=== PATIENT | female | born 2000 | race Caucasian/White ===

== ENCOUNTER 2023-06-03 23:23 | Emergency (ER) | payer BC, SELFPAY ==
[2023-06-03 23:36] VITALS: BP 134/73; PULSE 105; RESP 18; TEMP 36.7; O2SAT 99; BMI 30.1
[2023-06-03 23:46] LABS: Appearance Urine Clear (Clear); Bilirubin Urine Negative (Negative); Blood Urine 2+ (Negative); Color Urine Yellow (Yellow); Glucose Urine Negative (Negative); Ketones Urine Negative (Negative); Leukocyte Esterase Urine Trace (Negative); Nitrite Urine Negative (Negative); Protein Urine Negative (Negative); Specific Gravity Urine 1.025 (1.000-1.030); Urobilinogen Urine 0.2 (0.2-1.0); pH Urine 5.5 (5.0-8.5)
[2023-06-03 23:52] LABS: RBC Urine 0-2 (0-2)
[2023-06-03 23:53] LABS: Bacteria Urine Few; Squamous Epithelial Cell Urine Few (None-Few)
[2023-06-04 00:30] LABS: Ur HCG Qualitative* Negative (Negative)
[2023-06-04 00:39] LABS: Basophils Percent Auto 0.1 % (0.0-3.0); Eosinophils Percent Auto 0.1 % (0.0-7.0); Hematocrit 38.7 % (33.0-51.0); Hemoglobin* 12.8 gm/dL (12.0-16.0); Immature Granulocytes Pct Auto 0.1 %; Lymphocytes Percent Auto 12.3 % (20-44); Mean Corpuscular HGB Conc 33 gm/dL (32-36); Mean Corpuscular Hemoglobin 30 pg (26-34); Mean Corpuscular Volume 91 fL (80-100); Monocytes Percent Auto 6.2 % (0.0-11.0); Neutrophils Percent Auto 81.2 % (42.0-72.0); Platelet Count* 335 K/uL (140-440); RDW Coefficient of Variation % 13.3 % (11.5-15.5); Red Blood Count 4.27 m/uL (4.00-5.20); White Blood Count* 15.41 K/uL (4.50-11.00)
[2023-06-04 00:41] LABS: Slide Review Reflex No
--- NOTE | 2023-06-04 01:04 | ED_ITS ---
HPI - General Adult General Chief complaint: Abdominal Pain Stated complaint: abdominal pain Time Seen by Provider: 06/04/23 00:03 Source: patient Mode of arrival: ambulatory Limitations: no limitations History of Present Illness HPI narrative: 23-year-old female presents the emergency department with menstrual cramps. She reports that her period this month has been heavier than usual. It has been lasting for the past 4 days. She is changing a pad or tampon about every 3-4 hours show no severe bleeding. There is no lightheadedness, dizziness presyncopal symptoms. She denies any chance of as she has had no contact. She is not on any type of control. She notes no dysuria, no blood in her urine. No heavy menstrual clots. Denies a history of STDs. No unusual odor. Pain is crampy in nature, comes in waves. She tried taking some Tylenol with some mild temporary improvement in her symptoms. Has not tried ibuprofen. There was no trauma or injury. I asked if she has seen a gyneco logist and she reports that she saw 1 in the past but her periods to have been getting heavier and cramp the year gradually over the last couple of years per her description. She does verbalize some concern for endometriosis as she thinks her mother may have had the condition. There is not appear to be any dangerously emergent reason for coming to the emergency room in the middle of the night for this. Past medical history is benign per her report. No major long-term health problems. Nonsmoker. No long-term medications. Allergic to penicillin. ROS is notable for the gynecological symptoms as above. Negative for other generalized, GI, urinary, skin, respiratory, neurological changes. Related Data Home Medications Medication Instructions Recorded Confirmed No Known Home Medications 05/28/23 05/28/23 Allergies Allergy/AdvReac Type Severity Reaction Status Date / Time amoxicillin Allergy Intermediate Rash Verified 05/28/23 17:38 Penicillins Allergy Intermediate Rash Verified 05/28/23 17:38 [facility] Social History Smoking Status: Never smoker Exam Const: Vital Signs, click to edit/add: Vital Signs - 24 hr 06/03/23 23:36 Temperature 98.1 F Pulse Rate [Right Pulse Oximeter] 105 H Respiratory Rate 18 Blood Pressure [Ri ght Upper Arm] 134/73 Pulse Oximetry 99 Oxygen Delivery Me thod Room Air Documenting provider has reviewed patient's vital signs: yes Common normals: no apparent distress General appearance: cooperative and well kempt HENMT: Mouth: oral and palatal mucosa normal Eye: Common normals: conjunctivae normal General eye: normal appearance of both eyes Conjunctiva: conjunctiva(e) normal Resp: Common normals: normal respiratory effort, no use of accessory muscles and clear to auscultation bilaterally Effort & inspection: able to speak in complete sentences Auscultation: clear to auscultation bilaterally Cardio: Common normals: regular rate, regular rhythm, S1 normal heart sound and no murmurs Rate: regular rate Rhythm: regular rhythm Heart sounds: S1 normal GI: Common normals: Normal to inspection, nondistended, normoactive bowel sounds present, soft to palpation, non-tender, no hepatosplenomegaly and no masses Palpation: soft and no hepatosplenomegaly : Common normals: no CVA tenderness, external appearance normal, appearance of the vagina normal, appearance of the cervix normal, bimanual exam normal and adnexae non-tender Bladder/kidney exam: no CVA tenderness Bimanual exam- vagina & uterus: normal bimanual exam Other: light menstrual bleeding. Cervix is closed, no unusual odor. No clots. No abnormal discharge. No cervical motion tenderness. Back & Pelvis: Common normals: no CVA tenderness Extremity: Common normals: normal to inspection and no pedal edema Psych: Appearance: well kempt Mood and affect: anxious Insight: fair Judgement: fair Skin: Common normals: no rashes or lesions noted General skin exam: no rashes or lesions noted Course Course Hospital Course: Menstrual cramps with no signs of emergent hemorrhage, sepsis, dangerous infection or other severe pathology. Her pulse did improve while in the ED. wet prep is collected. Recommended CBC to ensure that there is no anemia from her bleeding as well as a urinalysis. She will be given Toradol 10 mg p.o. x1 while we await the results. Reevaluation(s) Time of Reevaluation #1: 01:16 Reevaluation #1: All findings reviewed with patient. She verbalizes understanding and agreement. Alarm symptoms reviewed. She will make a follow-up appointment with gynecology. No further questions Vital Signs Vital signs: Initial Vital Signs Temperature 98.1 F 06/03/23 23:36 Temperature Source Temporal Artery Scan 06/03/23 23:36 Pulse Rate 105 H 06/03/23 23:36 Respiratory Rate 18 06/03/23 23:36 Blood Pressure 134/73 06/03/23 23:36 Blood Pressure Mean 93 06/03/23 23:36 Blood Pressure Position Sitting 06/03/23 23:36 Pulse Oximetry 99 06/03/23 23:36 Oxygen Delivery Method Room Air 06/03/23 23:36 Vital Signs Temperature 98.1 F 06/03/23 23:36 Pulse Rate 105 H 06/03/23 23:36 Respiratory Rate 18 06/03/23 23:36 Blood Pressure 134/73 06/03/23 23:36 Pulse Oximetry 99 06/03/23 23:36 Oxygen Delivery Method Room Air 06/03/23 23:36 Temperature 98.1 F 06/03/23 23:36 Pulse Rate 105 H 06/03/23 23:36 Respiratory Rate 18 06/03/23 23:36 Blood Pressure 134/73 06/03/23 23:36 Pulse Oximetry 99 06/03/23 23:36 Oxygen Delivery Method Room Air 06/03/23 23:36 Medical Decision Making MDM Narrative Medical decision making narrative: Differential diagnosis including pelvic infection, urinary infection, , complicated , menstrual cramps, dysmenorrhea, among others. Intra-abd ominal pathology including appendicitis, diverticulitis, colitis. Abdominal exam is overall very reassuring and I do not recommend further pursue did these diagnoses. Lab Data Lab results reviewed: Yes I reviewed the patient's lab results Lab results narrative: No anemia, blood in the urine can be explained by menses. No evidence of vaginal infection. Negative HCG. All reassuring. Labs: Lab Results 06/03/23 06/04/23 06/04/23 Range/Units 23:35 00:00 00:30 WBC (4.50-11.00) K/uL RBC (4.00-5.20) m/uL Hgb (12.0-16.0) gm/dL Hct (33.0-51.0) % MCV (80-100) fL MCH (26-34) pg MCHC (32-36) gm/dL RDW Coeff of Carlos (11.5-15.5) % Plt Count (140-440) K/uL Neut % (Auto) (42.0-72.0) % Lymph % (Auto) (20-44) % [place] % (Auto) (0.0-11.0) % Eos % (Auto) (0.0-7.0) % Baso % (Auto) (0.0-3.0) % Neut # (Auto) (1.7-7.0) K/uL Lymph # (Auto) (0.90-2.90) K/uL [place] # (Auto) (0.00-0.90) K/UL Eos # (Auto) (0.00-0.50) K/uL Baso # (Auto) (0.00-0.30) K/uL Abs Immat Gran (auto) (0.00-0.30) K/uL Imm/Tot Granulo (auto) % Urine Color Yellow (Yellow) Urine Appearance Clear (Clear) Urine pH 5.5 (5.0-8.5) Ur Specific [place] 1.025 (1.000-1.030) Urine Protein Negative (Negative) Urine Glucose (UA) Negative (Negative) Urine Ketones Negative (Negative) Urine Blood 2+ A (Negative) Urine Nitrite Negative (Negative) Urine Bilirubin Negative (Negative) Urine Urobilinogen 0.2 (0.2-1.0) Ur Leukocyte Esterase Trace A (Negative) Urine RBC 0-2 (0-2) Urine WBC 2-5 (0-5) Ur Squamous Epith Cells Few (None-Few) Urine Bacteria Few A (None) Urine HCG, Qual Negative (Negative) Vaginal Trichomonas No Trichomonas Seen (None Seen) Vaginal Yeast No Yeast Seen (None Seen) Vaginal Clue Cells <20% Clue Cells Seen (None Seen) 06/04/23 Range/Units 00:35 WBC 15.41 H (4.50-11.00) K/uL RBC 4.27 (4.00-5.20) m/uL Hgb 12.8 (12.0-16.0) gm/dL Hct 38.7 (33.0-51.0) % MCV 91 (80-100) fL MCH 30 (26-34) pg MCHC 33 (32-36) gm/dL RDW Coeff of [place] 13.3 (11.5-15.5) % Plt Count 335 (140-440) K/uL Neut % (Auto) 81.2 H (42.0-72.0) % Lymph % (Auto) 12.3 L (20-44) % [place] % (Auto) 6.2 (0.0-11.0) % Eos % (Auto) 0.1 (0.0-7.0) % Baso % (Auto) 0.1 (0.0-3.0) % Neut # (Auto) 12.50 H (1.7-7.0) K/uL Lymph # (Auto) 1.90 (0.90-2.90) K/uL [place] # (Auto) 1.00 H (0.00-0.90) K/UL Eos # (Auto) 0.00 (0.00-0.50) K/uL Baso # (Auto) 0.00 (0.00-0.30) K/uL Abs Immat Gran (auto) 0.00 (0.00-0.30) K/uL Imm/Tot Granulo (auto) 0.1 % Urine Color (Yellow) Urine Appearance (Clear) Urine pH (5.0-8.5) Ur Specific [place] (1.000-1.030) Urine Protein (Negative) Urine Glucose (UA) (Negative) Urine Ketones (Negative) Urine Blood (Negative) Urine Nitrite (Negative) Urine Bilirubin (Negative) Urine Urobilinogen (0.2-1.0) Ur Leukocyte Esterase (Negative) Urine RBC (0-2) Urine WBC (0-5) Ur Squamous Epith Cells (None-Few) Urine Bacteria (None) Urine HCG, Qual (Negative) Vaginal Trichomonas (None Seen) Vaginal Yeast (None Seen) Vaginal Clue Cells (None Seen) Discharge Plan Discharge Clinical Impression: Crampy pain associated with menses Patient Disposition: Home, Self-Care Condition: Stable Instructions: Dysmenorrhea (ED) Additional Instructions: As we discussed, there is no sign of anemia, abnormal bleeding, infection or other reason for your abdominal pain today. I do think this is related to menstrual cramps. Unfortunately, it is not uncommon for your periods to become more crampy and heavy with age. I would strongly recommend that you make a follow-up appointment with our gynecology team to discuss long-term management options for you. In the meantime, treat the pain with Tylenol 1000 mg every 6 hours as needed, heating pads and bloo-rdq-bdboffr muscle rubs solutions. I have given you a prescription for Toradol, a common anti-inflammatory medication that works very well for this. Take 1 pill every 6 hours as needed. Once you run out of this, you may use ssze-koh-ytqleox Aleve instead. As we discussed, watch for very heavy bleeding such as soaking through a pad or tampon every hour, being so dizzy that you can get from her bed to the bathroom without feeling terribly weak or persistent vomiting. You may return to work with no restrictions in your duties. Activity Level: No Restrictions Discharge Diet: Regular Prescriptions: No Action No Known Home Medications Follow Up/Referrals: Provider,Not a Local [Primary Care Provider] - Stand Alone Forms: [employer] Info Instructions
[2023-06-04 01:07] LABS: Clue Cells <20% Clue Cells Seen (None Seen); Trichomonas No Trichomonas Seen (None Seen); Yeast No Yeast Seen (None Seen)
[2023-06-04 01:24] VITALS: BP 125/74; PULSE 89; RESP 18; TEMP 36.9; O2SAT 99
[2023-06-04 01:25] VITALS: BP 125/74; PULSE 89; RESP 18; TEMP 36.9
== END 2023-06-04 01:25 | disposition home or self-care (01) ==
PROVIDERS: Emergency Provider Family Medicine
DX: N94.6 Dysmenorrhea, unspecified (principal)
CPT/HCPCS: 36415; 81001; 81003; 81025; 85025; 87086; 87210; 99283; 99284

== ENCOUNTER 2023-06-10 01:51 | Emergency (ER) | payer BC, SELFPAY ==
[2023-06-10 01:58] VITALS: BP 140/90; PULSE 106; RESP 16; TEMP 37.2; O2SAT 98
--- NOTE | 2023-06-10 02:30 | ED.GENADULT ---
HPI - General Adult General Chief complaint: Abdominal Pain Stated complaint: stomach pains Time Seen by Provider: 06/10/23 01:57 History of Present Illness HPI narrative: pt complaining of abd pain, lower left and right. pain rated 7/10. has had this pain for about a week. was seen in ER last week. 23-year-old young woman presenting to the emergency department, returning after being evaluated with dysmenorrhea. It has been maybe 4 days though since completed menses. She was doubled over in pain at work. Noted to be generally bloated. Seems to have concerns of potential STI gone untreated. Mentions chlamydia. No dysuria. No unusual vaginal discharge. There was an odor though. Trichomonas BV and yeast was assessed the last visit and and negative. She reports an ultrasound was done but on review of records I cannot assess that. There is some question of whether not may have endometriosis. Has been taking ibuprofen acetaminophen with temporary relief. Also tried ketorolac prescribed at last visit. This helps briefly with her pain. Is nearly out. Just wondering why she is continuing to have pain as well. Related Data Home Medications Medication Instructions Recorded Confirmed No Known Home Medications 05/28/23 05/28/23 Allergies Allergy/AdvReac Type Severity Reaction Status Date / Time amoxicillin Allergy Intermediate Rash Verified 05/28/23 17:38 Penicillins Allergy Intermediate Rash Verified 05/28/23 17:38 Review of Systems Status of ROS: Reports: 6 or more systems reviewed and unremarkable except as noted in History and below [facility] Medical History (Updated 06/11/23 @ 17:21 by Cristian Saleh MD) No significant past medical history Surgical History (Updated 06/04/23 @ 01:23 by Bridger Corrales RN) No significant past surgical history Social History Smoking Status: Never smoker Second hand tobacco smoke exposure: No How often do you have a drink containing alcohol: never How often do you have six or more drinks on one occasion: Never AUDIT-C Alcohol total score: 0 Non-prescribed substance use: denies use Exam Narrative: Exam Narrative: Pleasant. Quiet. In no distress. Seems tired. Limited answers to questions. Defers to mom often in answering questions. Mild discomfort to palpation of the low abdomen. No peritoneal signs. No masses. For No flank pain. Lungs appear to be clear. exam not done today. Extremities are well perfused without edema. Const: Vital Signs, click to edit/add: Vital Signs - 24 hr 06/10/23 01:58 06/10/23 06:22 Temperature 98.9 F 97.6 F Pulse Rate [Left P ulse Oximeter] 106 H 90 Respiratory Rate 16 16 Blood Pressure [Ri ght Upper Arm] 140/90 H 136/62 Pulse Oximetry 98 98 Oxygen Delivery Me thod Room Air Room Air Documenting provider has reviewed patient's vital signs: yes Course Vital Signs Vital signs: Initial Vital Signs Temperature 98.9 F 06/10/23 01:58 Temperature Source Temporal Artery Scan 06/10/23 01:58 Pulse Rate 106 H 06/10/23 01:58 Pulse Rhythm Regular 06/10/23 01:58 Respiratory Rate 16 06/10/23 01:58 Blood Pressure 140/90 H 06/10/23 01:58 Blood Pressure Mean 106 H 06/10/23 01:58 Blood Pressure Position Sitting 06/10/23 01:58 Pulse Oximetry 98 06/10/23 01:58 Oxygen Delivery Method Room Air 06/10/23 01:58 Vital Signs Temperature 98.9 F 06/10/23 01:58 Pulse Rate 106 H 06/10/23 01:58 Respiratory Rate 16 06/10/23 01:58 Blood Pressure 140/90 H 06/10/23 01:58 Pulse Oximetry 98 06/10/23 01:58 Oxygen Delivery Method Room Air 06/10/23 01:58 Temperature 97.6 F 06/10/23 06:22 Pulse Rate 90 06/10/23 06:22 Respiratory Rate 16 06/10/23 06:22 Blood Pressure 136/62 06/10/23 06:22 Pulse Oximetry 98 06/10/23 06:22 Oxygen Delivery Method Room Air 06/10/23 06:22 Medical Decision Making MDM Narrative Medical decision making narrative: Moved on with CT of abdomen as Sherry maintained that an pelvic ultrasound was done at last visit though with further review I can not find any reference a record of it. Given degree of pain though and with elevated white count prior visit I think this would be reasonable to do. She notes a quite sometime ago there was suspected chlamydial exposure but she never got tested for it so this has been of concern as well. Possibly prolonged inflammation following menses though rather atypical. Endometriosis could be playing a role. Does not seem to be a kind of pain I would expect with torsion or even intermittent torsion. Of this chronicity though would see this in CT by this point. Diverticulitis is in differential along with constipation. Will evaluate urine again. Urine testing was negative. Ketorolac and IV fluid given. I do review CT images. Radiology over-read confirms CT scan does not show any reason for her pain without acute abnormalities. Diverticulosis is noted along with fatty liver and absent gallbladder. After departure urinalysis of gonorrhea and chlamydia testing returns with positive test for gonorrhea; negative for chlamydia. I have called and left message for Sherry to return for 1g IM Rocephin. Would also consider a test of cure in a week with primary provider. I think this certainly could be reason for her pain. Lab Data Lab results reviewed: Yes I reviewed the patient's lab results Labs: Lab Results 06/10/23 06/10/23 Range/Units 03:20 03:25 WBC 12.26 H (4.50-11.00) K/uL RBC 3.97 L (4.00-5.20) m/uL Hgb 11.6 L (12.0-16.0) gm/dL Hct 36.1 (33.0-51.0) % MCV 91 (80-100) fL MCH 29 (26-34) pg MCHC 32 (32-36) gm/dL RDW Coeff of [place] 13.4 (11.5-15.5) % Plt Count 361 (140-440) K/uL Neut % (Auto) 81.4 H (42.0-72.0) % Lymph % (Auto) 11.7 L (20-44) % [place] % (Auto) 6.3 (0.0-11.0) % Eos % (Auto) 0.2 (0.0-7.0) % Baso % (Auto) 0.1 (0.0-3.0) % Neut # (Auto) 10.00 H (1.7-7.0) K/uL Lymph # (Auto) 1.40 (0.90-2.90) K/uL [place] # (Auto) 0.80 (0.00-0.90) K/UL Eos # (Auto) 0.00 (0.00-0.50) K/uL Baso # (Auto) 0.00 (0.00-0.30) K/uL Abs Immat Gran (auto) 0.00 (0.00-0.30) K/uL Imm/Tot Granulo (auto) 0.3 % Sodium 141 (135-149) mmol/L Potassium 3.8 (3.6-5.1) mmol/L Chloride 106 (96-114) mmol/L Carbon Dioxide 24 (20-32) mmol/L Anion Gap 11 (7-15) mEq/L BUN 14 (5-24) mg/dL Creatinine 0.7 (0.5-1.5) mg/dL Estimated GFR 124 ml/min Glucose 95 (60-115) mg/dL Calcium 9.2 (8.4-10.6) mg/dL Total Bilirubin 0.5 (0.1-1.5) mg/dL Direct Bilirubin 0.1 (0.0-0.5) mg/dL AST 42 H (12-35) U/L ALT 46 H (4-35) U/L Alkaline Phosphatase 107 (40-150) U/L C-Reactive Protein 15.0 H (0.5-1.0) mg/dL Total Protein 8.0 (6.0-8.3) g/dL Albumin 4.4 (3.3-5.0) g/dL Urine Color Yellow (Yellow) Urine Appearance Slightly Cloudy A (Clear) Urine pH 6.0 (5.0-8.5) Ur Specific [place] 1.025 (1.000-1.030) Urine Protein Negative (Negative) Urine Glucose (UA) Negative (Negative) Urine Ketones Negative (Negative) Urine Blood Trace-intact A (Negative) Urine Nitrite Negative (Negative) Urine Bilirubin Negative (Negative) Urine Urobilinogen 0.2 (0.2-1.0) Ur Leukocyte Esterase 1+ A (Negative) Urine RBC 0-2 (0-2) Urine WBC 0-2 (0-5) Ur Squamous Epith Cells Few (None-Few) Urine Bacteria Few A (None) C.trachomatis Ampl DNA NOT DETECTED (No Detected) N.gonorrhoeae Ampl DNA DETECTED A (No Detected) Discharge Plan Discharge Clinical Impression: Pelvic pain, Dysmenorrhea, Gonorrhea Patient Disposition: Home w/ Parent or Adult Condition: Improved Additional Instructions: I will call you if testing for gonorrhea or chlamydia is positive. Otherwise yes I think it would be a good idea to reestablish primary care provider and/or see OBGYN if this pain is continuing. You mentioned the bloating, might try some Midol or Pamprin in addition to prescription medications. Stay well-hydrated. Alternative to the ketorolac or ibuprofen, might be naproxen up to 500 mg 2 times daily. Do not take ketorolac or ibuprofen or naproxen at the same time dosing. Return otherwise for uncontrolled pain, repeated vomiting, associated fever. Ketorolac from [facility]. Prescriptions: No Action No Known Home Medications Follow Up/Referrals: Provider,Not a Local [Primary Care Provider] - Stand Alone Forms: [employer] Info Instructions
--- NOTE | 2023-06-10 02:54 | CRLHL7_ITS ---
For Patients: As a result of the Century Cures Act, medical imaging exams and procedure reports are released immediately into your electronic medical record. You may view this report before your referring provider. If you have questions, please contact your health care provider. INDICATION: Pain for 1 week COMPARISON: None TECHNIQUE: CT examination of the abdomen and pelvis was performed following the uneventful intravenous administration of 83 cc of Isovue 3 7. Thin section axial images were obtained from the lung bases through the pubic symphysis. Oral contrast was not administered. Please note that all CT scans at this facility use dose modulation, iterative reconstruction, and/or weight-based dosing when appropriate to reduce radiation dose to as low as reasonably achievable. FINDINGS: LUNG BASES: The lung bases as visualized appear normal.The heart size is normal at the lung bases. LIVER/BILIARY SYSTEM:The liver is normal in size and configuration. There is no focal mass and there is no intra- or extra hepatic biliary ductal dilatation.Hepatic steatosis. Surgically absent gallbladder ADRENALS: Normal KIDNEYS, URETERS and BLADDER:The kidneys appear normal. No visible mass, calculus or hydronephrosis. The ureters and bladder as visualized appear normal. SPLEEN:Normal appearance. PANCREAS: Appears normal. RETROPERITONEUM and MESENTERY: There is no mass, adenopathy or aortic aneurysm. GASTROINTESTINAL SYSTEM: There is no evidence of diverticulitis, colitis, mechanical obstruction, or appendicitis. The small bowel as visualized appears normal.Diverticulosis PELVIS: No mass, adenopathy or free fluid. OSSEOUS STRUCTURES and ABDOMINAL WALL: There is an age-appropriate appearance of the osseous structures.No significant abdominal wall defect. OTHER: No free fluid or free air. IMPRESSION: Fatty infiltrated liver. Status post cholecystectomy. Diverticulosis. No acute appearing finding or directly visible explanation for abdominal pain. Please note that all CT scans at this facility use dose modulation, iterative reconstruction, and/or weight-based dosing when appropriate to reduce radiation dose to as low as reasonably achievable. Dictated by Keyon Patrick MD @ 06/10/2023 4:27:58 AM (Electronically Signed)
[2023-06-10 03:31] LABS: Basophils Percent Auto 0.1 % (0.0-3.0); Eosinophils Percent Auto 0.2 % (0.0-7.0); Hematocrit 36.1 % (33.0-51.0); Hemoglobin* 11.6 gm/dL (12.0-16.0); Immature Granulocytes Pct Auto 0.3 %; Lymphocytes Percent Auto 11.7 % (20-44); Mean Corpuscular HGB Conc 32 gm/dL (32-36); Mean Corpuscular Hemoglobin 29 pg (26-34); Mean Corpuscular Volume 91 fL (80-100); Monocytes Percent Auto 6.3 % (0.0-11.0); Neutrophils Percent Auto 81.4 % (42.0-72.0); Platelet Count* 361 K/uL (140-440); RDW Coefficient of Variation % 13.4 % (11.5-15.5); Red Blood Count 3.97 m/uL (4.00-5.20); White Blood Count* 12.26 K/uL (4.50-11.00)
[2023-06-10 03:33] LABS: Slide Review Reflex No
[2023-06-10 03:35] LABS: Appearance Urine Slightly Cloudy (Clear); Bilirubin Urine Negative (Negative); Blood Urine Trace-intact (Negative); Color Urine Yellow (Yellow); Glucose Urine Negative (Negative); Ketones Urine Negative (Negative); Leukocyte Esterase Urine 1+ (Negative); Nitrite Urine Negative (Negative); Protein Urine Negative (Negative); Specific Gravity Urine 1.025 (1.000-1.030); Urobilinogen Urine 0.2 (0.2-1.0)
[2023-06-10] MEDS: 0.9 % SODIUM CHLORIDE 1000 ml 1,000 ML IV (03:37)
[2023-06-10 03:41] LABS: Bacteria Urine Few; RBC Urine 0-2 (0-2); Squamous Epithelial Cell Urine Few (None-Few); WBC Urine 0-2 (0-5)
[2023-06-10 03:49] LABS: Chloride* 106 mmol/L (96-114); Potassium* 3.8 mmol/L (3.6-5.1); Sodium* 141 mmol/L (135-149)
[2023-06-10 03:50] LABS: Albumin* 4.4 g/dL (3.3-5.0)
[2023-06-10 03:52] LABS: Creatinine* 0.7 mg/dL (0.5-1.5); Estimated Glomerular Filt Rate 124 ml/min
[2023-06-10 03:53] LABS: Anion Gap 11 mEq/L (7-15); Bilirubin Direct* 0.1 mg/dL (0.0-0.5); Bilirubin Total* 0.5 mg/dL (0.1-1.5); Blood Urea Nitrogen* 14 mg/dL (5-24); Calcium* 9.2 mg/dL (8.4-10.6); Carbon Dioxide* 24 mmol/L (20-32); Glucose* 95 mg/dL (60-115)
[2023-06-10 03:54] LABS: Alanine Aminotransferase* 46 U/L (4-35); Alkaline Phosphatase* 107 U/L (40-150); Aspartate Amino Transferase* 42 U/L (12-35)
[2023-06-10] MEDS: KETOROLAC 30 MG/ML inj IVP (04:37)
[2023-06-10 06:22] VITALS: BP 136/62; PULSE 90; RESP 16; TEMP 36.4; O2SAT 98
[2023-06-10 07:25] LABS: Chlamydia DNA Amplified* NOT DETECTED (No Detected)
[2023-06-10 07:28] LABS: GC DNA Amplified* DETECTED (No Detected)
[2023-06-10] MEDS: cefTRIAXone 1 GM VIAL IM (14:15)
[2023-06-10] MEDS: LIDOCAINE 1% 5 ml (pf) 5 ML VIAL 2.1 ML IM (14:16)
== END 2023-06-10 06:23 | disposition home or self-care (01) ==
PROVIDERS: Emergency Provider Family Medicine
DX: N94.6 Dysmenorrhea, unspecified (principal); A54.9 Gonococcal infection, unspecified; R10.2 Pelvic and perineal pain
CPT/HCPCS: 36415; 74177; 80048; 80076; 81001; 85025; 86140; 87086; 87491; 87591; 96361; 96372; 96374; 99284; 99285; J0696; J1885; J7030; Q9967

== ENCOUNTER 2023-10-14 10:21 | Emergency (ER) | payer BC, SELFPAY ==
[2023-10-14] VITALS (21 sets, daily range): BP systolic 113–146; BP diastolic 66–91; PULSE 97–115; RESP 20; TEMP 36.8–37; O2SAT 95–99; BMI 30.1
--- NOTE | 2023-10-14 10:52 | ED.SOB ---
HPI - SOB/Dyspnea General Time Seen by Provider: 10:52 Date Seen: 10/14/23 Chief Complaint: Shortness of Breath/Dyspnea Stated Complaint: Trouble breathing, throat pain Time Seen by Provider: 10/14/23 10:52 Source: patient and RN notes reviewed Mode of arrival: ambulatory Limitations: no limitations History of Present Illness HPI Narrative: Sherry is a very pleasant 23-year-old female previously healthy who comes to the emergency room for evaluation of a sore throat and difficulty breathing. Patient notes the onset of a sore throat yesterday. Today it has become much worse in her tonsils are quite swollen and she states that it is hard to breathe. She has also had some nasal congestion and pressure in her forehead. She denies a cough however. She states that she is due to get her tonsils removed at the end of October because she gets sick frequently. She notes that she has never had this much swelling however. She has not had had any known exposures to illnesses that she knows of. She has not had any vomiting or diarrhea although she has some mild nausea at this point. No fevers at this point. She has not taken anything for discomfort. Related Data Previous Rx's Medication Instructions Recorded clindamycin HCl 300 mg capsule 300 mg PO TID #30 caps 10/14/23 Allergies Allergy/AdvReac Type Severity Reaction Status Date / Time amoxicillin Allergy Intermediate Rash Verified 05/28/23 17:38 Penicillins Allergy Intermediate Rash Verified 05/28/23 17:38 Review of Systems Status of ROS: Reports: 10 or more systems reviewed and unremarkable except as noted in History and below Const: Reports: fatigue; Denies: fever or chills Eyes: Denies: change in vision ENMT: Reports: throat pain, throat swelling, difficulty swallowing and nasal congestion; Denies: swelling of lips/tongue or ear pain Cardio: Reports: shortness of breath with exertion; Denies: chest pain Resp: Reports: shortness of breath; Denies: cough GI: Reports: nausea and difficulty swallowing; Denies: abdominal pain or vomiting : Reports: other (Adamantly denies any possibility of ) Endo: Reports: fatigue Allergy/Immuno: Reports: throat swelling PFSH PFSH Medical History No significant past medical history Surgical History No significant past surgical history Social History Smoking Status: Current every day smoker Do you use any of these nicotine containing products: Vaping Products Second hand tobacco smoke exposure: No How often do you have a drink containing alcohol: 2-3 times a week How many standard drinks containing alcohol do you have on a typical day: 1 or 2 How often do you have six or more drinks on one occasion: Never AUDIT-C Alcohol total score: 3 Non-prescribed substance use: denies use Exam Narrative: Exam Narrative: Patient is alert and oriented. She is not tripoding or pursing her lips but does appear to be in significant discomfort. Her eyes are clear, TMs normal. Nose without drainage. Oral cavity shows no trismus. She does have significantly enlarged tonsils at 3+. Her left tonsil appears to be larger than the right. No exudate is noted. Positive for anterior cervical lymphadenopathy. She is protecting her airway and I do not see any respiratory compromise at this time Heart with a tachycardic rate normal rhythm. Lungs are clear bilaterally. Abdomen is soft nontender. Moving all extremities. Const: Vital Signs, click to edit/add: Vital Signs - 24 hr 10/14/23 10:27 10/14/23 10:39 10/14/23 10:45 Temperature 98.3 F Pulse Rate 110 H 110 H Pulse Rate [Pulse Oximeter] 115 H Respiratory Rate 20 Blood Pressure Blood Pressure [Ri ght Upper Arm] 129/74 Pulse Oximetry 96 97 97 Oxygen Delivery Me thod Room Air 10/14/23 10:47 10/14/23 10:51 10/14/23 11:00 Temperature Pulse Rate 113 H 115 H Pulse Rate [Pulse Oximeter] 110 H Respiratory Rate Blood Pressure 143/86 H Blood Pressure [Ri ght Upper Arm] Pulse Oximetry 97 97 99 Oxygen Delivery Me thod Room Air 10/14/23 11:02 10/14/23 11:15 10/14/23 11:30 Temperature Pulse Rate 108 H 106 H 106 H Pulse Rate [Pulse Oximeter] Respiratory Rate Blood Pressure 146/85 H Blood Pressure [Ri ght Upper Arm] Pulse Oximetry 99 98 98 Oxygen Delivery Me thod 10/14/23 11:45 10/14/23 12:00 12/31/23 12:02 Temperature Pulse Rate 108 H 104 H 97 Pulse Rate [Pulse Oximeter] Respiratory Rate Blood Pressure 113/66 Blood Pressure [Ri ght Upper Arm] Pulse Oximetry 96 99 98 Oxygen Delivery Me thod 10/14/23 12:15 10/14/23 12:30 10/14/23 12:45 Temperature Pulse Rate 102 H 107 H 101 H Pulse Rate [Pulse Oximeter] Respiratory Rate Blood Pressure Blood Pressure [Ri ght Upper Arm] Pulse Oximetry 97 98 97 Oxygen Delivery Me thod 10/14/23 12:47 10/14/23 13:00 10/14/23 13:01 Temperature 98.6 F Pulse Rate 105 H 104 H Pulse Rate [Pulse Oximeter] Respiratory Rate Blood Pressure 123/91 H Blood Pressure [Ri ght Upper Arm] Pulse Oximetry 95 96 Oxygen Delivery Me thod 10/14/23 13:02 10/14/23 13:15 10/14/23 13:30 Temperature Pulse Rate 108 H 104 H 100 Pulse Rate [Pulse Oximeter] Respiratory Rate Blood Pressure Blood Pressure [Ri ght Upper Arm] Pulse Oximetry 95 95 95 Oxygen Delivery Me thod Documenting provider has reviewed patient's vital signs: yes Course Course ED Course: Differential diagnosis includes but is not limited to strep pharyngitis, COVID, influenza, RSV, mono, other viral infection, peritonsillar abscess. At this time we do count today as 2nd day of symptoms and thus a little bit early for an abscess to have had time to form. Nevertheless while awaiting other labs we will go ahead and place an IV, give Zofran 4 mg, Toradol 15 mg, clindamycin 600 mg. Normally would use Unasyn or Zosyn but patient is penicillin allergic. Initial plan was to give steroid but we are holding off until I speak with ENT. Vital Signs Vital signs: Initial Vital Signs Temperature 98.3 F 10/14/23 10:27 Temperature Source Temporal Artery Scan 10/14/23 10:27 Pulse Rate 115 H 10/14/23 10:27 Respiratory Rate 20 10/14/23 10:27 Blood Pressure 129/74 10/14/23 10:27 Blood Pressure Mean 92 10/14/23 10:27 Pulse Oximetry 96 10/14/23 10:27 Oxygen Delivery Method Room Air 10/14/23 10:27 Vital Signs Temperature 98.3 F 10/14/23 10:27 Pulse Rate 115 H 10/14/23 10:27 Respiratory Rate 20 10/14/23 10:27 Blood Pressure 129/74 10/14/23 10:27 Pulse Oximetry 96 10/14/23 10:27 Oxygen Delivery Method Room Air 10/14/23 10:27 Temperature 98.6 F 10/14/23 12:47 Pulse Rate 100 10/14/23 13:30 Respiratory Rate 20 10/14/23 10:27 Blood Pressure 123/91 H 10/14/23 13:01 Pulse Oximetry 95 10/14/23 13:30 Oxygen Delivery Method Room Air 10/14/23 10:51 Medications Administered Medications: Discontinued Medications Generic Name Dose Route Start Last Admin Trade Name Freq PRN Reason Stop Dose Admin Sodium Chloride 1,000 mls @ 1,000 mls/hr 10/14/23 10:59 10/14/23 12:18 0.9 % Sodium Chloride 1000 Ml IV 10/14/23 11:58 Infused .Q1H TANNER Infusion Clindamycin Phosphate 600 mg in 50 mls @ 100 mls/hr 10/14/23 11:01 10/14/23 11:53 Clindamycin 600 Mg/50 Ml-D5w IVPB 10/14/23 11:30 Infused ONCE ONE Infusion Ketorolac Tromethamine 15 mg 10/14/23 12:27 10/14/23 12:45 Ketorolac 15 Mg/Ml Inj IVP 10/14/23 12:28 15 mg ONCE ONE Administration Morphine Sulfate 2 mg 10/14/23 10:59 10/14/23 11:17 Morphine 2 Mg/Ml Inj IVP 10/14/23 11:00 2 mg ONCE ONE Administration Morphine Sulfate 4 mg 10/14/23 12:27 10/14/23 12:45 Morphine 4 Mg/Ml Inj IVP 10/14/23 12:28 4 mg ONCE ONE Administration Ondansetron HCl 4 mg 10/14/23 10:58 10/14/23 11:17 Ondansetron 2 Mg/Ml Inj IVP 10/14/23 10:59 4 mg ONCE ONE Administration MDM - SOB/Dyspnea MDM Narrative Medical decision making narrative: 1. Strep pharyngitis-positive strep, white count elevated at 13.93 and CRP at 2.0. patient received morphine, Toradol, Zofran for pain control. She also received her 1st dose of antibiotics clindamycin 600 mg IV.. I do speak with Dr. Quiroga who is covering our ENT cover just weekend. Agrees with holding off on CT at this time given length of symptoms. Will have patient return for any worsening symptoms. She is already noted to be doing a lot better. She also received 1 L of normal saline. Will continue clindamycin 300 mg p.o. t.i.d. times 10 days. 2. Disposition -home at this time. May alternate ibuprofen and Tylenol as needed for discomfort. Tylenol will be the next medication needed as she received Toradol in the ED. Return to the ER for worsening symptoms that are discussed with patient. This would include difficulty breathing, vomiting, high fever, inability to eat. Medical Records Attestation: I reviewed the patient's medical records. Lab Data Attestation: I reviewed the patient's lab results. Labs: Lab Results 10/14/23 10/14/23 Range/Units 10:35 11:00 WBC 13.93 H (4.50-11.00) K/uL RBC 4.48 (4.00-5.20) m/uL Hgb 13.3 (12.0-16.0) gm/dL Hct 40.2 (33.0-51.0) % MCV 90 (80-100) fL MCH 30 (26-34) pg MCHC 33 (32-36) gm/dL RDW Coeff of Carlos 13.5 (11.5-15.5) % Plt Count 331 (140-440) K/uL Neut % (Auto) 84.0 H (42.0-72.0) % Lymph % (Auto) 8.9 L (20-44) % Benzie % (Auto) 6.0 (0.0-11.0) % Eos % (Auto) 0.7 (0.0-7.0) % Baso % (Auto) 0.2 (0.0-3.0) % Neut # (Auto) 11.70 H (1.7-7.0) K/uL Lymph # (Auto) 1.20 (0.90-2.90) K/uL Benzie # (Auto) 0.80 (0.00-0.90) K/UL Eos # (Auto) 0.10 (0.00-0.50) K/uL Baso # (Auto) 0.00 (0.00-0.30) K/uL Abs Immat Gran (auto) 0.00 (0.00-0.30) K/uL Imm/Tot Granulo (auto) 0.2 % Sodium 138 (135-149) mmol/L Potassium 3.9 (3.6-5.1) mmol/L Chloride 105 (96-114) mmol/L Carbon Dioxide 23 (20-32) mmol/L Anion Gap 10 (7-15) mEq/L BUN 15 (5-24) mg/dL Creatinine 0.5 (0.5-1.5) mg/dL Estimated Creat Clear 143.52 Estimated GFR 134 ml/min Glucose 98 (60-115) mg/dL Calcium 9.1 (8.4-10.6) mg/dL Total Bilirubin 0.6 (0.1-1.5) mg/dL AST 37 H (12-35) U/L ALT 41 H (4-35) U/L Alkaline Phosphatase 103 (40-150) U/L C-Reactive Protein 2.0 H (0.5-1.0) mg/dL Total Protein 8.1 (6.0-8.3) g/dL Albumin 4.7 (3.3-5.0) g/dL SARS-CoV-2 (PCR) Negative SARS-CoV-2 (Negative) Monoscreen Negative (Negative) Influenza Type A (PCR) Negative PCR FLU A (Negative) Influenza Type B (PCR) Negative PCR FLU B (Negative) RSV (PCR) Negative PCR RSV (Negative) Group A Strep DNA DETECTED A (Not Detectd) Discharge Plan Discharge Clinical Impression: Acute streptococcal pharyngitis Patient Disposition: Home, Self-Care Condition: Improved Additional Instructions: Continue clindamycin as your antibiotic. This will be 3 times a day for 10 days. Soft foods in clear liquids. Please push liquids to stay well hydrated. You may alternate Tylenol and ibuprofen every 4 hours as needed for discomfort. Your next medication is needed should be Tylenol as you received Toradol in the emergency room which is much like ibuprofen. Return to the emergency room for worsening symptoms, difficulty breathing and as needed. Prescriptions: New clindamycin HCl 300 mg capsule 300 mg PO TID Qty: 30 0RF Follow Up/Referrals: Provider,Not a Local [Primary Care Provider] - Stand Alone Forms: [employer] Info Instructions
[2023-10-14 11:02] LABS: Strep A DNA Probe* DETECTED (Not Detectd)
[2023-10-14 11:14] LABS: Basophils Percent Auto 0.2 % (0.0-3.0); Eosinophils Percent Auto 0.7 % (0.0-7.0); Hematocrit 40.2 % (33.0-51.0); Hemoglobin* 13.3 gm/dL (12.0-16.0); Immature Granulocytes Pct Auto 0.2 %; Lymphocytes Percent Auto 8.9 % (20-44); Mean Corpuscular HGB Conc 33 gm/dL (32-36); Mean Corpuscular Hemoglobin 30 pg (26-34); Mean Corpuscular Volume 90 fL (80-100); Platelet Count* 331 K/uL (140-440); RDW Coefficient of Variation % 13.5 % (11.5-15.5); Red Blood Count 4.48 m/uL (4.00-5.20); White Blood Count* 13.93 K/uL (4.50-11.00)
[2023-10-14 11:15] LABS: Slide Review Reflex No
[2023-10-14] MEDS: MORPHINE 2 MG/ML inj IVP (11:17)
[2023-10-14] MEDS: ONDANSETRON 2 MG/ML inj 4 MG IVP (11:17)
[2023-10-14] MEDS: 0.9 % SODIUM CHLORIDE 1000 ml 1,000 ML IV (11:17)
[2023-10-14 11:19] LABS: PCR FLU A Negative PCR FLU A (Negative); PCR FLU B Negative PCR FLU B (Negative); PCR RSV Negative PCR RSV (Negative)
[2023-10-14 11:23] LABS: Mono Screen* Negative (Negative)
[2023-10-14] MEDS: CLINDAMYCIN 600 MG/50 ML-D5W 600 MG/50 ML PIGGYBACK 100 MG IVPB (11:23)
[2023-10-14 11:27] LABS: SARS PCR* Negative SARS-CoV-2 (Negative)
[2023-10-14 11:28] LABS: Albumin* 4.7 g/dL (3.3-5.0); Chloride* 105 mmol/L (96-114)
[2023-10-14 11:29] LABS: Potassium* 3.9 mmol/L (3.6-5.1); Sodium* 138 mmol/L (135-149)
[2023-10-14 11:31] LABS: Creatinine* 0.5 mg/dL (0.5-1.5); Est. Creatinine Clearance* 143.52; Estimated Glomerular Filt Rate 134 ml/min
[2023-10-14 11:32] LABS: Alanine Aminotransferase* 41 U/L (4-35); Alkaline Phosphatase* 103 U/L (40-150); Anion Gap 10 mEq/L (7-15); Aspartate Amino Transferase* 37 U/L (12-35); Bilirubin Total* 0.6 mg/dL (0.1-1.5); Blood Urea Nitrogen* 15 mg/dL (5-24); Calcium* 9.1 mg/dL (8.4-10.6); Carbon Dioxide* 23 mmol/L (20-32); Glucose* 98 mg/dL (60-115); Total Protein* 8.1 g/dL (6.0-8.3)
[2023-10-14] MEDS: MORPHINE 4 MG/ML INJ IVP (12:45)
[2023-10-14] MEDS: KETOROLAC 15 MG/ML inj IVP (12:45)
== END 2023-10-14 13:51 | disposition home or self-care (01) ==
PROVIDERS: Emergency Provider Family Medicine
DX: J03.00 Acute streptococcal tonsillitis, unspecified (principal)
CPT/HCPCS: 36415; 80053; 85025; 86140; 86308; 87631; 87651; 96374; 96375; 99283; 99284; J1885; J2270; J2405; J7030; S0077

== ENCOUNTER 2023-10-15 02:32 | Emergency (ER) | payer BC, SELFPAY ==
[2023-10-15 02:51] VITALS: BP 142/86; PULSE 115; RESP 16; TEMP 37.4; O2SAT 94; BMI 30.1
--- NOTE | 2023-10-15 03:13 | ED.GENADULT ---
HPI - General Adult General Chief complaint: Sore Throat Stated complaint: strep, throat pain Time Seen by Provider: 10/15/23 03:13 History of Present Illness HPI narrative: Patient returns to [place] ER with complaints of continued sore throat that is unbearable and I can't swallow. Patient was dx with strep yesterday and started on clindamycin. Patient states she has been able to take her medications and took tylenol one hour ago without relief. Patient states she has developed chills and is unable to check her temperature at home. Patient states she has been urinating OK. 23-year-old woman presenting to the emergency department with complaint of ?unbearable? sore throat. Seen around 12 hours ago for sore throat. She is now entering 2nd day of illness. Was diagnosed with strep throat. Had notably swollen tonsils. ENT was also consulted. Due to brief duration of illness imaging was deferred. Has not had any fever but has felt chilled. Has been taking clindamycin. Did take ketorolac sometime earlier today and more recently acetaminophen. Has not been able to control the pain at least with the latter. Is anticipating tonsillectomy due to ?frequent infections?. Was screen for mono and negative though is rather early onset; did not receive steroid. Otherwise seems to be hoping particularly for some pain relief mentioning that received morphine at prior visit. Related Data Previous Rx's Medication Instructions Recorded clindamycin HCl 300 mg capsule 300 mg PO TID #30 caps 10/14/23 Allergies Allergy/AdvReac Type Severity Reaction Status Date / Time amoxicillin Allergy Intermediate Rash Verified 05/28/23 17:38 Penicillins Allergy Intermediate Rash Verified 05/28/23 17:38 Review of Systems Status of ROS: Reports: 6 or more systems reviewed and unremarkable except as noted in History and below [facility] Medical History No significant past medical history Surgical History No significant past surgical history Social History Smoking Status: Current every day smoker Do you use any of these nicotine containing products: Vaping Products Second hand tobacco smoke exposure: No How often do you have a drink containing alcohol: 2-3 times a week How many standard drinks containing alcohol do you have on a typical day: 1 or 2 How often do you have six or more drinks on one occasion: Never AUDIT-C Alcohol total score: 3 Non-prescribed substance use: denies use service: No Exam Narrative: Exam Narrative: Is speaking with thick voice. Maintaining secretions. Was actually lying back somewhat when I come into the room. Oropharynx is moist. Rather enlarged tonsils mildly inflamed left greater than right. Some exudate as well. Trace posterior soft palate erythema. Exam appears consistent with description earlier today. Neck is supple with good range of motion without much in the way of adenopathy either anterior or posterior other than some fullness to the adenoids in the anterior chain.. Lungs are clear. Heart is tachycardic on triage; I appreciate it to be elevated but not tachycardic on exam. Regular rhythm. Moving all extremities without difficulty. Well-perfused. Skin warm and dry without rash. Const: Vital Signs, click to edit/add: Vital Signs - 24 hr 10/15/23 02:51 Temperature 99.4 F Pulse Rate [Left P ulse Oximeter] 115 H Respiratory Rate 16 Blood Pressure [Ri ght Upper Arm] 142/86 H Pulse Oximetry 94 Oxygen Delivery Me thod Room Air Documenting provider has reviewed patient's vital signs: yes Course Vital Signs Vital signs: Initial Vital Signs Temperature 99.4 F 10/15/23 02:51 Temperature Source Temporal Artery Scan 10/15/23 02:51 Pulse Rate 115 H 10/15/23 02:51 Pulse Rhythm Regular 10/15/23 02:51 Respiratory Rate 16 10/15/23 02:51 Respiratory Effort Normal, Spontaneous, Non-Labored 10/15/23 02:51 Respiratory Depth Normal 10/15/23 02:51 Respiratory Pattern Normal 10/15/23 02:51 Blood Pressure 142/86 H 10/15/23 02:51 Blood Pressure Mean 104 10/15/23 02:51 Blood Pressure Position Sitting 10/15/23 02:51 Pulse Oximetry 94 10/15/23 02:51 Oxygen Delivery Method Room Air 10/15/23 02:51 Vital Signs Temperature 99.4 F 10/15/23 02:51 Pulse Rate 115 H 10/15/23 02:51 Respiratory Rate 16 10/15/23 02:51 Blood Pressure 142/86 H 01/01/24 02:51 Pulse Oximetry 94 10/15/23 02:51 Oxygen Delivery Method Room Air 10/15/23 02:51 Temperature 99.4 F 10/15/23 02:51 Pulse Rate 115 H 10/15/23 02:51 Respiratory Rate 16 10/15/23 02:51 Blood Pressure 142/86 H 10/15/23 02:51 Pulse Oximetry 94 10/15/23 02:51 Oxygen Delivery Method Room Air 10/15/23 02:51 Medications Administered Medications: Discontinued Medications Generic Name Dose Route Start Last Admin Trade Name Freq PRN Reason Stop Dose Admin Hydrocodone Bitart/Acetaminophen 2 tab 10/15/23 03:40 10/15/23 03:50 Hydrocodone-Acetamin 5-325 Mg 1 Tab PO 10/15/23 03:41 2 tab ONCE ONE Administration Prednisone 80 mg 10/15/23 03:40 10/15/23 03:50 Prednisone 20 Mg Tablet PO 10/15/23 03:41 80 mg ONCE ONE Administration Medical Decision Making MDM Narrative Medical decision making narrative: Appears to have tonsillitis in the setting of strep infection. Peritonsillar, tonsillar, other or pharyngeal abscess is in differential. Certainly have not seen effect of antibiotic at this point. I am not sure that other than pain management that much has changed since last visit. I would like to offer some pain relief. Did give hurricane spray which did not seem to help very much. Mayra began crying saying that her throat hurts. Have ordered 2 tabs of Orovada and will also give a dose of prednisone. Will discuss potential imaging with Sherry in a bit. On reassessment is much more relaxed. Smiling a little bit. Admits that pain was the primary reason for visit more so than inability to swallow or breathe. I queried regarding penicillin allergy; this seems unclear. I think this would be helpful to clarify the future. I think can safely return home. No imaging needed at this time See patient discharge plan Medical Records Medical records reviewed: Yes I reviewed the patient's medical records Discharge Plan Discharge Clinical Impression: Streptococcal tonsillitis Patient Disposition: Home w/ Parent or Adult Condition: Improved Instructions: Strep Throat (ED) Additional Instructions: Just focus on hydration at the moment. Might help to sleep under the mist of a cool mist humidifier. Can take up to 800 mg of ibuprofen per does every 6 hours; instead of the ibuprofen could take 1 of your ketorolac tabs every 6 hours; instead of ibuprofen or ketorolac could take naproxen up to 500 mg 2 times daily. Either or ketorolac or naproxen could be combined with up to 1000 mg of acetaminophen per dose. Return for uncontrolled pain, new fever, difficulty swallowing secretions in spite of pain control, difficulty breathing. Orovada and prednisone from [facility]. I think that 4 days of prednisone will likely be enough. Remember that each tablet of Orovada contains 325 mg of acetaminophen. This also can be combined with ibuprofen or ketorolac or naproxen Prescriptions: No Action clindamycin HCl 300 mg capsule 300 mg PO TID Qty: 30 0RF Follow Up/Referrals: Provider,Not a Local [Primary Care Provider] - Stand Alone Forms: [employer] Info Instructions
[2023-10-15] MEDS: HYDROCODONE-ACETAMIN 5-325 MG 1 TAB 2 TAB PO (03:50)
[2023-10-15] MEDS: predniSONE 20 MG TABLET 80 MG PO (03:50)
== END 2023-10-15 04:48 | disposition home or self-care (01) ==
PROVIDERS: Emergency Provider Family Medicine
DX: J03.00 Acute streptococcal tonsillitis, unspecified (principal)
CPT/HCPCS: 99283; 99284; A9270; J7512

== ENCOUNTER 2023-11-18 15:00 | Emergency (ER) | payer BC, SELFPAY ==
[2023-11-18 15:05] VITALS: BP 141/96; PULSE 86; RESP 18; TEMP 36.8; O2SAT 98; BMI 31.0
--- NOTE | 2023-11-18 15:18 | ED_ITS ---
HPI - General Adult General Time Seen by Provider: 15:18 Date Seen: 11/18/23 Chief complaint: Post Op Complication Stated complaint: Post tonsillectomy pain Time Seen by Provider: 11/18/23 15:17 Source: patient and RN notes reviewed Mode of arrival: ambulatory Limitations: no limitations History of Present Illness HPI narrative: This 23-year-old female is ambulatory into the ED with concern of increasing throat pain after tonsillectomy in November 14. She had this done at a surgery center in [place] with Dr. Ortiz. She has been taking ibuprofen, has not used any Tylenol today. She did get some Children's Tylenol due to pain and difficulty of swallowing. She has been able to eat and drink some, doing better with drinking. No fevers or chills. Pain has reportedly increased in the last 24 hours. She has oxycodone both pills and liquid, states she spilled the liquid. She has been doing 5-10 mg up to every 4 hours. She is not on any antibiotics. She has maybe had just a slight cough occasionally. Related Data Home Medications Medication Instructions Recorded Confirmed No Known Home Medications 11/18/23 11/18/23 Allergies Allergy/AdvReac Type Severity Reaction Status Date / Time amoxicillin Allergy Intermediate Rash Verified 05/28/23 17:38 Penicillins Allergy Intermediate Rash Verified 05/28/23 17:38 Review of Systems Narrative: As per HPI. PFS PFS Medical History No significant past medical history Surgical History No significant past surgical history Social History Smoking Status: Current every day smoker Do you use any of these nicotine containing products: Vaping Products Second hand tobacco smoke exposure: No How often do you have a drink containing alcohol: 2-3 times a week How many standard drinks containing alcohol do you have on a typical day: 1 or 2 How often do you have six or more drinks on one occasion: Never AUDIT-C Alcohol total score: 3 Non-prescribed substance use: denies use service: No Exam Const: Vital Signs, click to edit/add: Vital Signs - 24 hr 11/18/23 15:05 11/18/23 15:26 11/18/23 16:50 Temperature 98.3 F Pulse Rate [Right Pulse Oximeter] 86 69 Respiratory Rate 18 Blood Pressure [Ri ght Upper Arm] 141/96 H 127/89 Pulse Oximetry 98 97 97 Oxygen Delivery Me thod Room Air Room Air This 23-year-old female is seen in exam room 4, she is alert, interactive, no apparent distress. Pupils equal round reactive to light, sclera clear, symmetrical facial function. Lips are normal, tongue normal. She has the blackish eschars on both sides of her throat, white around the periphery. There is some mild erythematous change but overall she is a good oral airway. Speech is normal, able this speak in complete sentences, no hoarseness. There is no neck masses, no cervical adenopathy. Lungs are clear, good air entry, no wheeze or crackles. CV regular rate rhythm, no murmur, normal S1-S2, no S3-S4. Documenting provider has reviewed patient's vital signs: yes Course Course ED Course: Reviewed with patient that we will establish an IV, give her L of IV fluids. We will do some oral Tylenol elix here, have ordered 480 mg of the 160 mg per 5 mL. Will see if she tolerates that. She is not taking any Tylenol today. As far as pain management, reviewed with her that oxycodone is quite strong medicine, clinically she does look well. We did discuss that sometimes giving patient is fluids really does help with the pain process as well. We certainly see that with other ENT tonsillectomy cases here. Will get some baseline labs to ensure she does not have an elevated white count or that there are no changes on her electrolytes concerning for significant dehydration. She did drive herself here, did review with her that I do not think she requires any narcotic medications IV at this time. She actually looks overall pretty good being a 23-year-old female status post tonsillectomy. We did review that this certainly is a painful procedure but will get better with time. I am reassured by her initial clinical presentation. Reevaluation(s) Time of Reevaluation #1: 17:20 Reevaluation #1: Patient is re-evaluated, she is feeling okay. She does feel a bit better. She states she has enough pain medicines to get through the evening/night, can message her surgeon tomorrow for further pain pills. Did offer to write for more pain medication if she needed more overnight but she states she has enough to get through the evening. Vital Signs Vital signs: Initial Vital Signs Temperature 98.3 F 11/18/23 15:05 Temperature Source Temporal Artery Scan 11/18/23 15:05 Pulse Rate 86 11/18/23 15:05 Respiratory Rate 18 11/18/23 15:05 Blood Pressure 141/96 H 11/18/23 15:05 Blood Pressure Mean 111 H 11/18/23 15:05 Blood Pressure Position Sitting 11/18/23 15:05 Pulse Oximetry 98 11/18/23 15:05 Oxygen Delivery Method Room Air 11/18/23 15:05 Vital Signs Temperature 98.3 F 11/18/23 15:05 Pulse Rate 86 11/18/23 15:05 Respiratory Rate 18 11/18/23 15:05 Blood Pressure 141/96 H 11/18/23 15:05 Pulse Oximetry 98 11/18/23 15:05 Oxygen Delivery Method Room Air 11/18/23 15:05 Temperature 98.3 F 11/18/23 15:05 Pulse Rate 69 11/18/23 16:50 Respiratory Rate 18 11/18/23 15:05 Blood Pressure 127/89 11/18/23 16:50 Pulse Oximetry 97 11/18/23 16:50 Oxygen Delivery Method Room Air 11/18/23 16:50 Medications Administered Medications: Discontinued Medications Generic Name Dose Route Start Last Admin Trade Name Сергейq PRN Reason Stop Dose Admin Acetaminophen 480 mg 11/18/23 15:26 11/18/23 15:32 Acetaminophen 160 Mg/5 Ml Cup PO 11/18/23 15:27 480 mg ONCE ONE Administration Sodium Chloride 1,000 mls @ 1,000 mls/hr 11/18/23 15:26 11/18/23 16:50 0.9 % Sodium Chloride 1000 Ml IV 11/18/23 16:25 Infused .Q1H TANNER Infusion Medical Decision Making Lab Data Lab results reviewed: Yes I reviewed the patient's lab results Lab results narrative: Labs reviewed with patient, reviewed that they are normal. Labs: Lab Results 11/18/23 Range/Units 15:40 WBC 8.71 (4.50-11.00) K/uL RBC 4.38 (4.00-5.20) m/uL Hgb 13.1 (12.0-16.0) gm/dL Hct 40.5 (33.0-51.0) % MCV 93 (80-100) fL MCH 30 (26-34) pg MCHC 32 (32-36) gm/dL RDW Coeff of Carlos 13.5 (11.5-15.5) % Plt Count 240 (140-440) K/uL Neut % (Auto) 67.1 (42.0-72.0) % Lymph % (Auto) 25.8 (20-44) % [place] % (Auto) 5.3 (0.0-11.0) % Eos % (Auto) 0.5 (0.0-7.0) % Baso % (Auto) 0.3 (0.0-3.0) % Neut # (Auto) 5.84 (1.7-7.0) K/uL Lymph # (Auto) 2.25 (0.90-2.90) K/uL [place] # (Auto) 0.50 (0.00-0.90) K/UL Eos # (Auto) 0.04 (0.00-0.50) K/uL Baso # (Auto) 0.03 (0.00-0.30) K/uL Abs Immat Gran (auto) 0.09 (0.00-0.30) K/uL Imm/Tot Granulo (auto) 1.0 % Diff Slide Review Acceptable Review (Acceptable) Sodium 138 (135-149) mmol/L Potassium 4.2 (3.6-5.1) mmol/L Chloride 101 (96-114) mmol/L Carbon Dioxide 24 (20-32) mmol/L Anion Gap 13 (7-15) mEq/L BUN 12 (5-24) mg/dL Creatinine 0.5 (0.5-1.5) mg/dL Estimated Creat Clear 143.52 Estimated GFR 134 ml/min Glucose 87 (60-115) mg/dL Calcium 9.6 (8.4-10.6) mg/dL Discharge Plan Discharge Clinical Impression: Post-operative pain Patient Disposition: Home, Self-Care Condition: Stable Instructions: Tonsillectomy (DC), Pain Management After Surgery (DC) Additional Instructions: Continue with oxycodone per your surgeon instructions. For Tylenol, can take the Children's elixir 160 mg per 5 mL, 15 mL every 4-6 hours as needed. Continue with ibuprofen per bottle directions. If you develop fever or other concerns as listed on your postoperative information, please seek re-evaluation or at least contact your surgeon. You will need to contact your surgeon tomorrow if you need further pain medicines. Prescriptions: No Action No Known Home Medications Follow Up/Referrals: Provider,Not a Local [Primary Care Provider] - Stand Alone Forms: [employer] Info Instructions
[2023-11-18 15:26] VITALS: O2SAT 97
[2023-11-18] MEDS: ACETAMINOPHEN 160 MG/5 ML CUP 480 MG PO (15:32)
[2023-11-18] MEDS: 0.9 % SODIUM CHLORIDE 1000 ml 1,000 ML IV (15:34)
[2023-11-18 15:53] LABS: Basophils Absolute Auto 0.03 K/uL (0.00-0.30); Basophils Percent Auto 0.3 % (0.0-3.0); Eosinophils Absolute Auto 0.04 K/uL (0.00-0.50); Eosinophils Percent Auto 0.5 % (0.0-7.0); Hematocrit 40.5 % (33.0-51.0); Hemoglobin* 13.1 gm/dL (12.0-16.0); Immature Granulocytes Abs Auto 0.09 K/uL (0.00-0.30); Lymphocytes Absolute Auto 2.25 K/uL (0.90-2.90); Lymphocytes Percent Auto 25.8 % (20-44); Mean Corpuscular HGB Conc 32 gm/dL (32-36); Mean Corpuscular Hemoglobin 30 pg (26-34); Mean Corpuscular Volume 93 fL (80-100); Monocytes Percent Auto 5.3 % (0.0-11.0); Neutrophils Absolute Auto 5.84 K/uL (1.7-7.0); Neutrophils Percent Auto 67.1 % (42.0-72.0); Platelet Count* 240 K/uL (140-440); RDW Coefficient of Variation % 13.5 % (11.5-15.5); Red Blood Count 4.38 m/uL (4.00-5.20); White Blood Count* 8.71 K/uL (4.50-11.00)
[2023-11-18 16:04] LABS: Chloride* 101 mmol/L (96-114); Potassium* 4.2 mmol/L (3.6-5.1); Sodium* 138 mmol/L (135-149)
--- OUTSIDE RECORDS SUMMARY | 2023-11-18 16:04 | XMS_ITS | Clinical Summary ---
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 0 08/25/2022 Active valACYclovir (Valtrex) 1 gram tabletIndications: HSV-1 infection Take 1 Tablet (1 g) by mouth two times daily. Fill at patient's request 20 Tablet 1 05/10/2023 Active Additional Information Patient taking differently:1 g OralBID PRN, Breakouts, Fill at patient's request, Informant: Patient's Recall, Reported on 11/14/2023 methylPREDNISolone (MEDROL DOSEPAK) 4 mg tabletIndications: Chronic tonsillitis Take by mouth as instructed per packaging. 21 Tablet 0 11/14/2023 Active ibuprofen (ADVIL; MOTRIN) 600 mg tabletIndications: Chronic tonsillitis Take 1 Tablet (600 mg) by mouth four times daily with meals and at bedtime for 10 days. Maximum of 3200 mg in 24 hours. 40 Tablet 0 11/14/2023 11/24/19 24 Active acetaminophen (TYLENOL EXTRA STRGTH) 500 mg tabletIndications: Chronic tonsillitis Take 2 Tablets (1,000 mg) by mouth every 6 hours if needed for Pain. Max acetaminophen dose: 4000mg in 24 hrs. 0 11/14/2023 Active oxyCODONE (ROXICODONE) 5 mg immediate release tabletIndications: History of tonsillectomy Take 1-2 Tablets (5-10 mg) by mouth every 4 hours if needed for Pain. 25 Tablet 0 11/16/2023 Active spironolactone (ALDACTONE) 50 mg tabletIndications: Hirsutism Take 1 Tablet (50 mg) by mouth 2 times daily. 180 Tablet 3 12/28/2021 10/25/19 24 Discontinu ed(*Patien t states no longer taking) cefdinir (OMNICEF) 300 mg capsuleIndications :Strep pharyngitis Take 1 Capsule (300 mg) by mouth two times daily for 10 days. 20 Capsule 0 10/16/2023 10/25/19 24 Discontinu ed(*Patien t states no longer taking) HYDROcodone-acetam inophen (5-325 mg/tablet)Indicati ons:Strep pharyngitis Take 1 Tablet by mouth 4 times daily if needed for Pain. Max acetaminophen dose: 4000 mg in 24 hrs. 10 Tablet 0 10/16/2023 10/25/19 24 Discontinu ed(*Patien t states no longer taking) oxyCODONE (ROXICODONE) 5 mg/5 mL solutionIndication s:Chronic tonsillitis Take 5-10 mL (5-10 mg) by mouth every 4 hours if needed for Pain. 300 mL 0 11/14/2023 11/16/19 24 Discontinu ed(Reorder (E-cancel not sent)) oxyCODONE (ROXICODONE) 5 mg/5 mL solutionIndication s:Chronic tonsillitis Take 5-10 mL (5-10 mg) by mouth every 4 hours if needed for Pain. 300 mL 0 11/16/2023 11/16/19 24 Discontinu ed(*Availa bility/For mulary change/Cos t of medication ) Active Problems Problem Noted Date Diagnosed Date Cocaine use 09/01/2022 Pap smear for cervical cancer screening 05/15/20 22 Overview: 05/2022 NIL/ HPV negative Plan: Pap/ HPV due 05/2027 Closed avulsion fracture of middle phalanx of fi nger 11/27/2019 Tobacco dependence 07/03/2018 Dermatophytosis of the body 04/15/2007 Encounters Date Type Department Care Team Description 11/17/2023 Nurse Triage [facility] [address] [facility] [place] [address] Pcp, No Throat Pain/problem 11/16/2023 Telephone [facility] [address] [place] [address] Haydee Ortiz MD Form 11/14/2023 12:57 PM TEACHERS AIDE - 11/14/2023 1:58 PM TEACHERS AIDE Surgery [address] [address] Haydee Ortiz MD Bilateral-Tonsillecto my, adenoidectomy 11/14/2023 12:28 PM TEACHERS AIDE Anesthesia Event [address] [address] Prabhakar Palomares MD Koenig, Disha Wilson MD 11/14/2023 10:25 AM TEACHERS AIDE - 11/14/2023 3:00 PM TEACHERS AIDE Hospital Encounter [address] [address] Haydee Ortiz MD Chronic tonsillitis (Primary Dx); HSV-1 infection Discharge Disposition: Home Self Care 11/13/2023 Travel 10/25/2023 2:30 PM TEACHERS AIDE Preop Visit [facility] [address] [place] [address] Mary Rubio DO Pre-Op Exam ([facility] 11/14/23 - Diana - T&A) 10/25/2023 Travel 10/16/2023 10:30 AM TEACHERS AIDE Ancillary Procedure [facility] [address] [place] [address] 10/16/2023 9:55 AM TEACHERS AIDE Office Visit [facility] [address] [place] [address] Kamryn Crespo PA Throat Problem (Diagnosed with strep Sunday morning at the ER/Throat is still very painful/not improving) 10/16/2023 Telephone [facility] [address] [place] [address] Kamryn Crespo PA Medication Problem (Med out of stock- need new pharmacy) 10/16/2023 Telephone [facility] [address] [place] [address] Kamryn Crespo PA Error-please disregard 10/16/2023 Travel 09/01/2023 Telephone [facility] [address] [place] [address] Haydee Ortiz MD Questions (injection for tonsils) 08/29/2023 Telephone [facility] [address] [place] [address] Haydee Ortiz MD Surgery Scheduled 08/29/2023 Orders Only [facility] [address] [place] [address] Haydee Ortiz MD <No scans attached> 08/21/2023 4:15 PM TEACHERS AIDE Office Visit [facility] [address] [place] [phone] Haydee Ortiz MD Throat Problem (Large tonsils, reported getting sick a lot. ) 08/21/2023 Travel from Last 3 Months Immunizations Name Administration Dates Next Due DTaP 06/08/2004, 2,09/24/2000,1999,1999 HIB-HepB (Comvax) 09/24/2000,1999,07/19/19 99 Inactivated Polio Vaccine 06/08/2004,,06/08/2000,1999,1999 MMR 06/08/2004,06/28/2000 Pneumococcal conj 7-Valent ( Prevnar 7) 09/24/2000 Tdap 04/05/2011 Varicella Vaccine 04/05/2011,06/28/2000 Family History Medical History Relation Name Comments Hyperlipidemia Maternal Grandmother Hypertension Maternal Grandmother Good Health Mother Asthma No Family History Cancer-breast No Family History Cancer-colon No Family History Diabetes No Family History Heart Disease No Family History Relation Name Status Comments Maternal Grandmother Mother Social History Tobacco Use Types Packs/Day Years Used Date Smoking Tobacco: Former Cigarettes 0.3 2.8 0 07/09/2016 - 05/15/2019 Smokeless Tobacco: Never Tobacco Cessation:Counseling Given: Yes Comments:Quit cigs on 05/2019 Alcohol Use Standard Drinks/Week Comments Yes 0 (1 standard drink = 0.6 oz pur e alcohol) 3-4 - see screening tab PHQ-2 Answer Date Recorded PHQ-2 TOTAL SCORE 2 09/12/2022 Social Connections Answer Date Recorded Frequency of Communication with Friends and Fami ly 0 10/16/2023 Alcohol Use Answer Date Recorded How often do you have a drink containing alcohol ? 2 10/16/2023 How many drinks containing a lcohol do you have on a typical day when you are drinking? 1 10/16/2023 How often do you have five or more drinks on one occasion? 0 10/16/2023 Financial Resource Strain Answer Date R ecorded Difficulty of Paying Living Expenses 3 10/16/2023 Difficulty of Paying Living Expenses Not on file 10/16/2023 Food Insecurity Answer Date Recorded Worried About Running Out of Food in the Last Ye ar 1 10/16/2023 Transportation Needs Answer Date Record ed Lack of Transportation (Medical) 1 10/16/2023 Housing Stability Answer Date Recorded Unable to Pay for Housing in the Last Year 1 10/16/2023 Sex and Gender Information Value Date Recorded Sex Assigned at Not on file Gender Identity Not on file Sexual Orientation Not on file Obstetrics History Para Term AB IAB SAB Ectopic Multiple Livin g Live Births 0 0 0 0 0 0 0 0 0 0 0 Last Filed Vital Signs Vital Sign Reading Time Taken Comments Blood Pressure 106/67 11/14/2023 3:00 PM TEACHERS AIDE Pulse 81 11/14/2023 3:00 PM TEACHERS AIDE Temperature 37.2 ??C (99 ??F) 11/14/2023 1:53 PM TEACHERS AIDE Respiratory Rate 16 11/14/2023 3:00 PM TEACHERS AIDE Oxygen Saturation 94% 11/14/2023 3:00 PM TEACHERS AIDE Inhaled Oxygen Concentration - - Weight 78.7 kg (173 lb 8 oz) 11/14/2023 10:37 AM TEACHERS AIDE Height 160 cm (5' 3) 11/14/2023 10:37 AM TEACHERS AIDE Body Mass Index 30.73 11/14/2023 10:37 AM TEACHERS AIDE Plan of Treatment Scheduled Procedures Name Priority Associated Diagnoses Date/Ti me SURGICAL PROCEDURE (TYPE PRO CEDURE DESCRIPTION BELOW) Elective Tonsillar hypertrophy Health Maintenance Due Date Last Done Comments COVID-19 vaccine series (#1) 1999 HPV series for age 9-26 (1 - 2-dose series) 2010 Tetanus booster 04/05/2021 04/05/2011 Chlamydia for age 16-24 05/30/2023 05/30/20, 08/28/2019, 07/03/2019, Additional history exists Influenza for age 9-49 06/15/2023 Depression screening for age 12+ 09/12/2023 09/12/2022, 02/18/2021, 02/17/2021, Additional history exists BMI (ht and wt on same day) for age 18+ 10/25/2024 10/25/2023, 09/12/2022, 07/27/2022, Additional history exists Pap test for age 21-65 05/30/2027 05/30/2022, 2021 Pneumococcal series for age 6-64 Aged Out 09/24/2000 No longer eligible based on patient's age to complete this topic Tdap Completed 04/05/2011 HIV for age 15-65 Completed 05/30/2022 Hepatitis C screening for age 18-79 Completed 05/30/2022 Procedures Procedure Name Priority Date/Time Associated Diagnosis Comments PATH TISSUE EXAM Today 11/14/2023 12:4 7 PM TEACHERS AIDE ENDOTRACHEAL TUBE Routine 11/14/2023 12: 44 PM TEACHERS AIDE ENDOTRACHEAL TUBE Routine 11/14/2023 12: 44 PM TEACHERS AIDE ENDOTRACHEAL TUBE Routine 11/14/2023 12: 44 PM TEACHERS AIDE TONSILLECTOMY AND ADENOIDECTOMY Elective 11/14/2023 12:18 PM TEACHERS AIDE Recurrent tonsillitis Case Notes 20 MIN TF Special Needs 5ft4in 80.5kg 30.45 BMI URINE POCT Preop 11/14/2023 10:41 AM TEACHERS AIDE SCAN-CARDIAC STRIP 11/14/2023 12 :[address] NECK SOFT TISSUE W STAT 10/16/2023 10:48 AM TEACHERS AIDE Strep pharyngitis CBC WITH AUTO DIFFERENTIAL Routine 10/16/2023 10:23 AM TEACHERS AIDE Strep pharyngitis HETEROPHILE Routine 10/16/2023 10:23 AM TEACHERS AIDE Strep pharyngitis EBV AB IGG IGM AND EBNA Routine 10/16/2023 10:23 AM TEACHERS AIDE Strep pharyngitis CBC WITH AUTO DIFFERENTIAL Routine 10/16/2023 10:23 AM TEACHERS AIDE Strep pharyngitis from Last 3 Months Results * PATH TISSUE EXAM (11/14/2023 12:47 PM TEACHERS AIDE) Case Report Pathology Report ?Case: [id number] ? Authorizing Provider: ??Haydee Ortiz MD ??Collected: ? 11/14/2023 1247 ? Ordering Location: ? [facility] ?Received: ?11/14/2023 1506 ? Pathologist: ? Leslie Hicks MD ? Specimens: ?? A) - Right Tonsil ? B) - Left Tonsil ? 11/15/2023 3:32 PM [facility] [employer] LABORAT[facility]-C ENTRAL LABORATORY Final Diagnosis A) TONSIL, RIGHT, TONSILLECTOMY: 1. Reactive lymphoid hyperplasia 2. Negative for neoplasm on these sections B) TONSIL, LEFT, TONSILLECTOMY: 1. Reactive lymphoid hyperplasia 2. Negative for neoplasm on these sections 11/15/2023 3:32 PM [facility] Clinical Information Recurrent tonsillitis, adenotonsillar hypertrophy 11/15/2023 3:32 PM [facility] Gross Description A) Received in formalin labeled with the patient's name and right tonsil, is a 3.8 x 2.2 x 1.2 cm pink-alva ovoid palantine tonsil. It is partially surfaced by glistening cribriform mucosa. The cut surfaces are pink and rubbery with no masses or lesions identified. A artist representative section is submitted in one cassette. B) Received in formalin labeled with the patient's name and left tonsil, is a 3.4 x 2.1 x 1.8 cm pink-alva ovoid palantine tonsil. It is partially surfaced by glistening cribriform mucosa. The cut surfaces are pink and rubbery with no masses or lesions identified. A artist representative section is submitted in one cassette. YOAV 11/14/2023 11/15/2023 3:32 PM [facility] Microscopic Description The final diagnosis is based on microscopic examination of appropriate sections of all specimens. 11/15/2023 3:32 PM TEACHERS AIDE [facility] Additional Information Interpreted at [facility], Central Laboratory - [address], [place] [address] 11/15/2023 3:32 PM TEACHERS AIDE [facility]-C ENTRAL LABORATORY Tissue (Right Tonsil) 11/14/2023 12:47 PM TEACHERS AIDE 11/14/2023 3:06 PM TEACHERS AIDE Tissue specimen (specimen) (Left Tonsil) 11/14/2023 12:47 PM TEACHERS AIDE 11/14/2023 3:06 PM TEACHERS AIDE Haydee Ortiz MD PATHOLOGY/CYTOLO [facility] [address] [place] [address], [facility] SENDOUT INTERNAL ZIP [address] [place] [address] * HCHG TUBE TRACH PR1, HCHG STYLET PR1, HCHG MOUTHPIECE PR1 (11/14/2023 12:44 PM TEACHERS AIDE) Narrative Cristian Leonard CRNA - 11/14/2023 12:44 PM TEACHERS AIDE Cristian Leonard CRNA ? 11/14/2023 12:44 PM Procedure: ETT Patient location during procedure: OR ETT Properties Mask Ventilation: easy Final Technique: direct laryngoscopy Type: KATHERIN Location: oral Cuffed: yes Tube Size: 7.0 mm Stylet: yes Laryngoscope Blade: Taylor Blade Size: 2 Cormack-Lehane Grade View: 1 Insertion Attempts: 1 Placement Verification: auscultation, end tidal CO2 and symmetrical chest wall movement Assessment: pharynx clear, atraumatic and dentition unchanged Secured at: bend Tooth guard used and removed: yes Difficulty: 0 (not difficult) Prabhakar Palomares MD ANESTHESIA PX NOTE O RDERABLES * POC Urine [facility] Only (11/14/2023 10:41 AM TEACHERS AIDE) ,URIN E Negative Negative 11/14/2023 12:25 PM TEACHERS AIDE [facility] Urine URINE SPECIMEN / Unknown Non-Blood / Unknown 11/14/2023 10:41 AM TEACHERS AIDE 11/14/2023 11:24 AM TEACHERS AIDE Disha Escalante MD URINE [facility] SENDOUT INTERNAL ZIP [id number] [address] [place] [address] * SCAN-CARDIAC STRIP (11/14/2023 12:00 AM TEACHERS AIDE) Narrative 11/14/2023 12:00 AM TEACHERS AIDE Ordered by an unspecified provider. Other Clinical Staff OTHER * CT NECK SOFT TISSUE W (10/16/2023 10:48 AM TEACHERS AIDE) Anatomical Region Laterality Modality NECK Computed Tomogra phy 10/16/2023 11:0 5 AM TEACHERS AIDE Impressions 10/16/2023 11:05 AM TEACHERS AIDE Tonsillitis and adenoiditis. No abscess. Reactive appearing adenopathy. Please note that all CT scans at this facility use dose modulation, iterative reconstruction, and/or weight-based dosing when appropriate to reduce radiation dose to as low as reasonably achievable. Dictated by Kiah Lorenz MD @ 10/16/2023 11:05:04 AM (Electronically Signed) Narrative 10/16/2023 11:05 AM TEACHERS AIDE For Patients: ??As a result of the Century Cures Act, medical imaging exams and procedure reports are released immediately into your electronic medical record. ??You may view this report before your referring provider. ??If you have questions, please contact your health care provider. INDICATION: Severe throat pain, positive strep test COMPARISON: None TECHNIQUE: CT of the neck with contrast. Multiplanar axial, coronal, and sagittal reformats were reconstructed. Intravenous contrast: 100 mL of Omnipaque 300. FINDINGS: Lymph nodes: Enlarged reactive cervical lymph nodes, primarily at level II. Parotid and submandibular glands: Normal. Thyroid gland: Normal. Tonsils: Hyperenhancing striated palatine tonsils as well as adenoidal tissue the lingual tonsils are normal. No peritonsillar or tonsillar abscess or collection. Airway: Mildly narrowed posterior oropharyngeal airway and posterior nasopharyngeal airway due to enlarged adenoids and tonsils. Normal epiglottis. No retropharyngeal effusion or abscess. Mildly prominent left greater than right retropharyngeal adenopathy.. Paranasal sinus: There is some irregular mucosal thickening in the left maxillary sinus. The other paranasal sinuses are well aerated. The nasal septum has a sigmoid deviation pattern. Incidental aaliyah bullosa. Soft tissues: Normal. No swelling. No foreign body. Arteries: No atherosclerosis. No arterial aneurysm, dissection, or thrombus. Veins: No deep vein thrombosis. Lung apices: Normal. Bones: No fractures. No focal bone lesions. Dental amalgam. Included intracranial contents, orbits and mastoids: Normal. Procedure Note Kiah Loernz MD - 10/16/2023 For Patients: As a result of the Cures Act, medical imagingexams and procedure reports are released immediately into your electronicmedical record. You may view this report before your referring provider.If you have questions, please contact your health care provider. INDICATION: Severe throat pain, positive strep test COMPARISON: None TECHNIQUE: CT of the neck with contrast. Multiplanar axial, coronal, and sagittalreformats were reconstructed. Intravenous contrast: 100 mL of Omnipaque 300. FINDINGS: Lymph nodes: Enlarged reactive cervical lymph nodes, primarily at levelII. Parotid and submandibular glands: Normal. Thyroid gland: Normal. Tonsils: Hyperenhancing striated palatine tonsils as well as adenoidaltissue the lingual tonsils are normal. No peritonsillar or tonsillarabscess or collection. Airway: Mildly narrowed posterior oropharyngeal airway and posteriornasopharyngeal airway due to enlarged adenoids and tonsils. Normalepiglottis. No retropharyngeal effusion or abscess. Mildly prominent leftgreater than right retropharyngeal adenopathy.. Paranasal sinus: There is some irregular mucosal thickening in the leftmaxillary sinus. The other paranasal sinuses are well aerated. The nasalseptum has a sigmoid deviation pattern. Incidental aaliyah bullosa. Soft tissues: Normal. No swelling. No foreign body. Arteries: No atherosclerosis. No arterial aneurysm, dissection, orthrombus. Veins: No deep vein thrombosis. Lung apices: Normal. Bones: No fractures. No focal bone lesions. Dental amalgam. Included intracranial contents, orbits and mastoids: Normal. IMPRESSION: Tonsillitis and adenoiditis. No abscess. Reactive appearing adenopathy. Please note that all CT scans at this facility use dose modulation,iterative reconstruction, and/or weight-based dosing when appropriate toreduce radiation dose to as low as reasonably achievable. Dictated by Kiah Lorenz MD @ 10/16/2023 11:05:04 AM (Electronically Signed) Kamryn PETERS CT * (ABNORMAL) CBC WITH AUTO DIFFERENTIAL (10/16/2023 10:23 AM TEACHERS AIDE) [facility] WHITE BLOOD COUNT 14.1(H) 4.5 - 11.0 thou/cu mm 10/16/2023 10:29 AM [facility] RED BLOOD COUNT 4.10 4.00 - 5.20 mil/cu mm 10/16/2023 10:29 AM [facility] HEMOGLOBIN 12.5 12.0 - 16.0 g/dL 10/16/2023 10:29 AM [facility] HEMATOCRIT 37.7 33.0 - 51.0 % 10/16/2023 10:29 AM [facility] MCV 92 80 - 100 fL 10/16/2023 10:29 AM [facility] MCH 30.5 26.0 - 34.0 pg 10/16/2023 10:29 AM [facility] MCHC 33.2 32.0 - 36.0 g/dL 10/16/2023 10:29 AM [facility] RDW 14.7 11.5 - 15.5 % 10/16/2023 10:29 AM [facility] PLATELET COUNT 329 140 - 440 thou/cu mm 10/16/2023 10:29 AM [facility] MPV 9.6 6.5 - 11.0 fL 10/16/2023 10:29 AM [facility] % NEUT 83.7 % 10/16/2023 10:29 AM [facility] % LYMPH 10.0 % 10/16/2023 10:29 AM [facility] % MONO 5.6 % 10/16/2023 10:29 AM [facility] % EOS 0.6 % 10/16/2023 10:29 AM TEACHERS AIDE [facility] % BASO 0.1 % 10/16/2023 10:29 AM [facility] ABSOLUTE NEUTROPHILS 11.8(H) 1.7 - 7.0 thou/cu mm 10/16/2023 10:29 AM TEACHERS AIDE [facility] ABSOLUTE LYMPHOCYTES 1.4 0.9 - 2.9 thou/cu mm 10/16/2023 10:29 AM TEACHERS AIDE [facility] ABSOLUTE MONOCYTES 0.8 <0.9 thou/cu mm 10/16/2023 10:29 AM TEACHERS AIDE [facility] ABSOLUTE EOSINOPHILS 0.1 <0.5 thou/cu mm 10/16/2023 10:29 AM TEACHERS AIDE [facility] ABSOLUTE BASOPHILS 0.0 <0.3 thou/cu mm 10/16/2023 10:29 AM [facility] Blood BLOOD SPECIMEN / Unknown Venipuncture / Unknown 10/16/2023 10:23 AM TEACHERS AIDE 10/16/2023 10:25 AM TEACHERS AIDE [place] [address], * (ABNORMAL) EBV AB IGG IGM AND EBNA (10/16/2023 10:23 AM TEACHERS AIDE) VCA IGG Positive(A) Negative 10/17/2023 7:46 AM TEACHERS AIDE [facility] EBV IGM Negative Negative 10/17/2023 7:46 AM TEACHERS AIDE [facility] EBNA IGG Positive(A) Negative 10/17/2023 7:46 AM TEACHERS AIDE [facility] NTRAL LABORATORY EBV INTERPRETATION Suggests Past Infection 10/17/2023 7:46 AM TEACHERS AIDE [facility] NTRAL LABORATORY Blood BLOOD SPECIMEN / Unknown Venipuncture / Unknown 10/16/2023 10:23 AM TEACHERS AIDE 10/16/2023 10:25 AM TEACHERS AIDE Narrative [facility] - 10/17/2023 7:46 AM TEACHERS AIDE Presence of detectable EBNA IgG and VCA IgG antibodies. ??A positive result suggests past infection. Kamryn PETERS SEND OUTS [facility] [address] [place] [address], [place] * HETEROPHILE (10/16/2023 10:23 AM TEACHERS AIDE) HETEROPHILE Negative Negative 10/16/2023 10:37 AM TEACHERS AIDE [facility] Blood BLOOD SPECIMEN / Unknown Venipuncture / Unknown 10/16/2023 10:23 AM TEACHERS AIDE 10/16/2023 10:25 AM TEACHERS AIDE Kamryn PETERS HEMATOLOGY [facility] [address] [place] [address], from Last 3 Months Advance Directives Latest Code Status on File Code Status Date Activated Date Inactivated Comments Full Code 11/14/2023 10:27 AM 11/14/2023 5:07 PM Question Answer Comments Code Status Discussion: Reviewed Preferences Care Teams Patch Machine Operator Relationship Specialty Start Date End Date Pcp, No . PCP - General 09/20/23
[2023-11-18 16:07] LABS: Anion Gap 13 mEq/L (7-15); Blood Urea Nitrogen* 12 mg/dL (5-24); Carbon Dioxide* 24 mmol/L (20-32); Creatinine* 0.5 mg/dL (0.5-1.5); Est. Creatinine Clearance* 143.52; Estimated Glomerular Filt Rate 134 ml/min; Slide Review Reflex Yes
[2023-11-18 16:08] LABS: Calcium* 9.6 mg/dL (8.4-10.6); Glucose* 87 mg/dL (60-115); Slide Review Acceptable Review (Acceptable)
[2023-11-18 16:50] VITALS: BP 127/89; PULSE 69; O2SAT 97
== END 2023-11-18 17:28 | disposition home or self-care (01) ==
PROVIDERS: Emergency Provider Family Medicine
DX: G89.18 Other acute postprocedural pain (principal)
CPT/HCPCS: 36415; 80048; 85025; 94761; 96360; 99283; 99284; A9270; J7030

== ENCOUNTER 2023-11-20 17:15 | Emergency (ER) | payer BC, SELFPAY ==
--- OUTSIDE RECORDS SUMMARY | 2023-11-20 17:24 | XMS_ITS | Clinical Summary ---
Author Name Unknown Organization [facility] Address [place], [place] [address] Care Team Providers Care Sec Reporting Consultant Name Role Phone Pcp, No Primary Care [...] if needed for Pain. 25 Tablet 0 11/19/2023 Active spironolactone (ALDACTONE) 50 mg tabletIndications: Hirsutism [...] bility/For mulary change/Cos t of medication ) oxyCODONE (ROXICODONE) 5 mg immediate release tabletIndications: History of tonsillectomy Take 1-2 Tablets (5-10 mg) by mouth every 4 hours if needed for Pain. 25 Tablet 0 11/16/2023 11/19/19 24 Discontinu ed(Reorder (E-cancel not sent)) Active Problems Problem Noted Date Diagnosed Date Cocaine use 09/01/2022 Pap smear for cervical cancer screening 05/15/20 22 Overview: 05/2022 NIL/ HPV negative Plan: Pap/ HPV due 05/2027 Closed avulsion fracture of middle phalanx of fi nger 11/27/2019 Tobacco dependence 07/03/2018 Dermatophytosis of the body 04/15/2007 Encounters Date Type Department Care Team Description 11/17/2023 Nurse Triage [facility] [address] [place] [address] Pcp, No Throat Pain/problem 11/16/[address] [facility] [address] [place] [address] Haydee Ortiz MD Form 11/14/2023 12:57 PM ROTARY BAR OPERATOR - 11/14/2023 1:58 PM ROTARY BAR OPERATOR Surgery [address] [address] Haydee Ortiz MD Bilateral-Tonsillecto my, adenoidectomy 11/14/2023 12:28 PM ROTARY BAR OPERATOR Anesthesia Event [address] [address] Prabhakar Palomares MD Koenig, Disha Wilson MD 11/14/2023 10:25 AM ROTARY BAR OPERATOR - 11/14/2023 3:00 PM ROTARY BAR OPERATOR Hospital Encounter [address] [address] Haydee Ortiz MD Chronic tonsillitis (Primary Dx); HSV-1 infection Discharge Disposition: Home Self Care 11/13/2023 Travel 10/25/2023 2:30 PM ROTARY BAR OPERATOR Preop Visit [facility] [address] [place] [address] Mary Rubio, Pre-Op Exam ([facility] 11/14/23 - Diana - T&A) 10/25/2023 Travel 10/16/2023 10:30 AM ROTARY BAR OPERATOR Ancillary Procedure [facility] [address] [place] [address] 10/16/2023 9:55 AM ROTARY BAR OPERATOR Office Visit [facility] [address] [place] [address] Kamryn Crespo PA Throat Problem (Diagnosed with strep Sunday morning at the ER/Throat is still very painful/not improving) 10/16/2023 Telephone [facility] [address] [place] [address] Kamryn Crespo PA Medication Problem (Med out of stock- need new pharmacy) 10/16/2023 Telephone [facility] [address] [place] [address] Kamryn Crespo PA Error-please disregard 10/16/2023 Travel 09/01/[address] [facility] [address] [facility] [address] [place] [address] Haydee Ortiz MD Questions (injection for tonsils) 08/29/[address] [facility] [address] [facility] [address] [place] [address] Haydee Ortiz MD Surgery Scheduled 08/29/[address] [facility] [address] [facility] [address] [place] [address] Haydee Ortiz MD <No scans attached> 08/21/2023 4:15 PM ROTARY BAR OPERATOR Office Visit [facility] [address] [place] [phone] Haydee Ortiz MD Throat Problem (Large tonsils, [...] Comments Blood Pressure 106/67 11/14/2023 3:00 PM ROTARY BAR OPERATOR Pulse 81 11/14/2023 3:00 PM ROTARY BAR OPERATOR Temperature 37.2 ??C (99 ??F) 11/14/2023 1:53 PM ROTARY BAR OPERATOR Respiratory Rate 16 11/14/2023 3:00 PM ROTARY BAR OPERATOR Oxygen Saturation 94% 11/14/2023 3:00 PM ROTARY BAR OPERATOR Inhaled Oxygen Concentration - - Weight 78.7 kg (173 lb 8 oz) 11/14/2023 10:37 AM ROTARY BAR OPERATOR Height 160 cm (5' 3) 11/14/2023 10:37 AM ROTARY BAR OPERATOR Body Mass Index 30.73 11/14/2023 10:37 AM ROTARY BAR OPERATOR Plan of Treatment Scheduled Procedures Name Priority [...] TISSUE EXAM Today 11/14/2023 12:4 7 PM ROTARY BAR OPERATOR ENDOTRACHEAL TUBE Routine 11/14/2023 12: 44 PM ROTARY BAR OPERATOR ENDOTRACHEAL TUBE Routine 11/14/2023 12: 44 PM ROTARY BAR OPERATOR ENDOTRACHEAL TUBE Routine 11/14/2023 12: 44 PM ROTARY BAR OPERATOR TONSILLECTOMY AND ADENOIDECTOMY Elective 11/14/2023 12:18 PM ROTARY BAR OPERATOR Recurrent tonsillitis Case Notes 20 MIN TF Special Needs 5ft4in 80.5kg 30.45 BMI URINE POCT Preop 11/14/2023 10:41 AM ROTARY BAR OPERATOR SCAN-CARDIAC STRIP 11/14/2023 12 :00 AM ROTARY BAR OPERATOR CT NECK SOFT TISSUE W STAT 10/16/2023 10:48 AM ROTARY BAR OPERATOR Strep pharyngitis CBC WITH AUTO DIFFERENTIAL Routine 10/16/2023 10:23 AM ROTARY BAR OPERATOR Strep pharyngitis HETEROPHILE Routine 10/16/2023 10:23 AM ROTARY BAR OPERATOR Strep pharyngitis EBV AB IGG IGM AND EBNA Routine 10/16/2023 10:23 AM ROTARY BAR OPERATOR Strep pharyngitis CBC WITH AUTO DIFFERENTIAL Routine 10/16/2023 10:23 AM ROTARY BAR OPERATOR Strep pharyngitis from Last 3 Months Results * PATH TISSUE EXAM (11/14/2023 12:47 PM ROTARY BAR OPERATOR) Case Report Pathology Report ?Case: [id number] ? Authorizing Provider: ??Haydee Ortiz MD ??Collected: ? 11/14/2023 1247 ? Ordering Location: ? [facility] ?Received: ?11/14/2023 1506 ? Pathologist: ? Leslie Hicks MD ? Specimens: ?? A) - Right Tonsil ? B) - Left Tonsil ? 11/15/2023 3:32 PM ROTARY BAR OPERATOR [facility] LAB[facility] Final Diagnosis A) TONSIL, RIGHT, TONSILLECTOMY: 1. Reactive lymphoid hyperplasia 2. Negative for neoplasm on these sections B) TONSIL, LEFT, TONSILLECTOMY: 1. Reactive lymphoid hyperplasia 2. Negative for neoplasm on these sections 11/15/2023 3:32 PM [facility] Clinical Information Recurrent tonsillitis, adenotonsillar hypertrophy 11/15/2023 3:32 PM [facility] Gross Description A) Received in formalin labeled with the patient's name and right tonsil, is a 3.8 x 2.2 x 1.2 cm pink-alva ovoid palantine tonsil. It is partially surfaced by glistening cribriform mucosa. The cut surfaces are pink and rubbery with no masses or lesions identified. A life assurance representative section is submitted in one cassette. B) Received in formalin labeled with the patient's name and left tonsil, is a 3.4 x 2.1 x 1.8 cm pink-alva ovoid palantine tonsil. It is partially surfaced by glistening cribriform mucosa. The cut surfaces are pink and rubbery with no masses or lesions identified. A life assurance representative section is submitted in one cassette. YOAV 11/14/2023 11/15/2023 3:32 PM ROTARY BAR OPERATOR [facility] Microscopic Description The final diagnosis is based on microscopic examination of appropriate sections of all specimens. 11/15/2023 3:32 PM ROTARY BAR OPERATOR [facility] Additional Information Interpreted at [facility], Central Laboratory - [address], [place] [address] 11/15/2023 3:32 PM ROTARY BAR OPERATOR [facility]-C ENTRAL LABORATORY Tissue (Right Tonsil) 11/14/2023 12:47 PM ROTARY BAR OPERATOR 11/14/2023 3:06 PM ROTARY BAR OPERATOR Tissue specimen (specimen) (Left Tonsil) 11/14/2023 12:47 PM ROTARY BAR OPERATOR 11/14/2023 3:06 PM ROTARY BAR OPERATOR Haydee Ortiz MD PATHOLOGY/CYTOLO [facility] [address] [place] [address], [facility] [id number] [place] [address] * HC TUBE TRACH PR1, HCHG STYLET PR1, HCHG MOUTHPIECE PR1 (11/14/2023 12:44 PM ROTARY BAR OPERATOR) Narrative Cristian Leonard CRNA - 11/14/2023 12:44 PM ROTARY BAR OPERATOR Cristian Leonard CRNA ? 11/14/2023 12:44 PM [...] [facility] Only (11/14/2023 10:41 AM ROTARY BAR OPERATOR) ,URIN E Negative Negative 11/14/2023 12:25 PM ROTARY BAR OPERATOR [facility] Urine URINE SPECIMEN / Unknown Non-Blood / Unknown 11/14/2023 10:41 AM ROTARY BAR OPERATOR 11/14/2023 11:24 AM ROTARY BAR OPERATOR Disha Escalante MD URINE [facility] [address] [place] [phone] [place] [address] * SCAN-CARDIAC STRIP (11/14/2023 12:00 AM ROTARY BAR OPERATOR) Narrative 11/14/2023 12:00 AM ROTARY BAR OPERATOR Ordered by an unspecified provider. Other Clinical Staff OTHER * CT NECK SOFT TISSUE W (10/16/2023 10:48 AM ROTARY BAR OPERATOR) Anatomical Region Laterality Modality NECK Computed Tomogra phy 10/16/2023 11:0 5 AM ROTARY BAR OPERATOR Impressions 10/16/2023 11:05 AM ROTARY BAR OPERATOR Tonsillitis and adenoiditis. No abscess. Reactive appearing adenopathy. Please note that all CT scans at this facility use dose modulation, iterative reconstruction, and/or weight-based dosing when appropriate to reduce radiation dose to as low as reasonably achievable. Dictated by Kiah Lorenz MD @ 10/16/2023 11:05:04 AM (Electronically Signed) Narrative 10/16/2023 11:05 AM ROTARY BAR OPERATOR For Patients: ??As a result of the 21st Century Cures Act, medical imaging exams and [...] orbits and mastoids: Normal. Procedure Note Kiah Lorenz MD - 10/16/2023 For Patients: As a [...] CBC WITH AUTO DIFFERENTIAL (10/16/2023 10:23 AM ROTARY BAR OPERATOR) WHITE BLOOD COUNT 14.1(H) 4.5 - 11.0 thou/cu mm 10/16/2023 10:29 AM [facility] RED BLOOD COUNT 4.10 4.00 - 5.20 mil/cu mm 10/16/2023 10:29 AM [facility] HEMOGLOBIN 12.5 12.0 - 16.0 g/dL 10/16/2023 10:29 AM [facility] HEMATOCRIT 37.7 33.0 - 51.0 % 10/16/2023 10:29 AM [facility] MCV 92 80 - 100 fL 10/16/2023 10:29 AM [facility] MCH 30.5 26.0 - 34.0 pg 10/16/2023 10:29 AM [facility] MCHC 33.2 32.0 - 36.0 g/dL 10/16/2023 10:29 AM [facility] RDW 14.7 11.5 - 15.5 % 10/16/2023 10:29 AM [facility] PLATELET COUNT 329 140 - 440 thou/cu mm 10/16/2023 10:29 AM [facility] MPV 9.6 6.5 - 11.0 fL 10/16/2023 10:29 AM [facility] % NEUT 83.7 % 10/16/2023 10:29 AM [facility] % LYMPH 10.0 % 10/16/2023 10:29 AM [facility] % MONO 5.6 % 10/16/2023 10:29 AM [facility] % EOS 0.6 % 10/16/2023 10:29 AM [facility] % BASO 0.1 % 10/16/2023 10:29 AM [facility] ABSOLUTE NEUTROPHILS 11.8(H) 1.7 - 7.0 thou/cu mm 10/16/2023 10:29 AM [facility] ABSOLUTE LYMPHOCYTES 1.4 0.9 - 2.9 thou/cu mm 10/16/2023 10:29 AM [facility] ABSOLUTE MONOCYTES 0.8 <0.9 thou/cu mm 10/16/2023 10:29 AM [facility] ABSOLUTE EOSINOPHILS 0.1 <0.5 thou/cu mm 10/16/2023 10:29 AM [facility] ABSOLUTE BASOPHILS 0.0 <0.3 thou/cu mm 10/16/2023 10:29 AM [facility] Blood BLOOD SPECIMEN / Unknown Venipuncture / Unknown 10/16/2023 10:23 AM ROTARY BAR OPERATOR 10/16/2023 10:25 AM [facility] Kamryn PETERS HEMATOLOGY [facility] [address] [place] [address], * (ABNORMAL) EBV AB IGG IGM AND EBNA (10/16/2023 10:23 AM ROTARY BAR OPERATOR) VCA IGG Positive(A) Negative 10/17/2023 7:46 AM ROTARY BAR OPERATOR [facility] NTRAL LABORATORY EBV IGM Negative Negative 10/17/2023 7:46 AM ROTARY BAR OPERATOR [facility] EBNA IGG Positive(A) Negative 10/17/2023 7:46 AM ROTARY BAR OPERATOR [facility] N[facility] LAB[facility] EBV INTERPRETATION Suggests Past Infection 10/17/2023 7:46 AM ROTARY BAR OPERATOR [facility] NTRVT LABORAT[facility] Blood BLOOD SPECIMEN / Unknown Venipuncture / Unknown 10/16/2023 10:23 AM ROTARY BAR OPERATOR 10/16/2023 10:25 AM ROTARY BAR OPERATOR Narrative [facility] - 10/17/2023 7:46 AM ROTARY BAR OPERATOR Presence of detectable EBNA IgG and VCA IgG antibodies. ??A positive result suggests past infection. Kamryn PETERS SEND OUT[facility] [address] [place] [address], * HETEROPHILE (10/16/2023 10:23 AM ROTARY BAR OPERATOR) HETEROPHILE Negative Negative 10/16/2023 10:37 AM ROTARY BAR OPERATOR [facility] Blood BLOOD SPECIMEN / Unknown Venipuncture / Unknown 10/16/2023 10:23 AM ROTARY BAR OPERATOR 10/16/2023 10:25 AM ROTARY BAR OPERATOR Kamryn PETERS HEMATOLOGY [facility] [address] [place] [address], from Last 3 Months Advance Directives Latest Code Status on File Code Status Date Activated Date Inactivated Comments Full Code 11/14/2023 10:27 AM 11/14/2023 5:07 PM Question Answer Comments Code Status Discussion: Reviewed Preferences Care Teams Sec Reporting Consultant Relationship Specialty Start Date End Date Pcp, No . PCP - General 09/20/23
--- NOTE | 2023-11-20 17:55 | W.ED.CHARTNO ---
ED Chart Note Chart Note Details Date: 11/20/23 Details: Patient left the triage area without being seen by a provider
== END 2023-11-20 17:27 | disposition left against medical advice (07) ==
PROVIDERS: Emergency Provider Student in an Organized Health Care Education/Training Program
DX: Z53.21 Procedure and treatment not carried out due to patient leaving prior to being seen by health care provider (principal)

== ENCOUNTER 2024-04-03 00:22 | Emergency (ER) | payer BC, SELFPAY ==
[2024-04-03 00:30] VITALS: BP 139/84; PULSE 105; RESP 20; TEMP 36.7; O2SAT 97; BMI 30.1
[2024-04-03] MEDS: ONDANSETRON ODT 4 MG TAB 8 MG PO (00:53)
--- NOTE | 2024-04-03 00:54 | ED.GENADULT ---
HPI - General Adult General Chief complaint: Nausea/Vomiting Stated complaint: vomiting/diarrhea Time Seen by Provider: 04/03/24 00:35 Source: patient Mode of arrival: ambulatory Limitations: no limitations History of Present Illness HPI narrative: 23-year-old female with prior history of cholecystectomy presents the emergency department with a 6 hour history of epigastric discomfort, nausea and vomiting, diarrhea. No injury or trauma. No alcohol or recreational pharmaceuticals. Symptoms started at work, initially with some mild epigastric discomfort than headache and nausea. She left work early and when she got home the nausea worsened and she started vomiting. She has vomited about every hour since then. Has had 2 bouts of watery diarrhea. No bloody stools. No fever, no hematuria, no gynecological changes. Denies chance of . Did not try taking any medication to help with her symptoms. No known ill contacts, no pertinent travel, no recent antibiotic use. Past medical history benign per her report, no major long-term health problems. Does take Singulair for allergies only, no history of asthma. GI history notable for prior uncomplicated cholecystectomy. Allergies to amoxicillin and penicillin. Does use of tobacco vape device. ROS notable for the GI symptoms as above only, otherwise denies times 12 systems. Related Data Home Medications ?Medication ?Instructions ?Recorded ?Confirmed montelukast 10 mg tablet 10 mg PO DAILY 04/03/24 04/03/24 Allergies Allergy/AdvReac Type Severity Reaction Status Date / Time amoxicillin Allergy Intermediate Rash Verified 04/03/24 00:32 Penicillins Allergy Intermediate Rash Verified 04/03/24 00:32 [facility] Medical History No significant past medical history Surgical History No significant past surgical history Social History Smoking Status: Current every day smoker Do you use any of these nicotine containing products: Vaping Products Second hand tobacco smoke exposure: No How often do you have a drink containing alcohol: 2-3 times a week How many standard drinks containing alcohol do you have on a typical day: 1 or 2 How often do you have six or more drinks on one occasion: Never AUDIT-C Alcohol total score: 3 Non-prescribed substance use: denies use service: No Exam Const: Vital Signs, click to edit/add: Vital Signs - 24 hr 04/03/24 00:30 Temperature 98.1 F Pulse Rate [Right Pulse Oximeter] 105 H Respiratory Rate 20 Blood Pressure [Ri ght Upper Arm] 139/84 Pulse Oximetry 97 Oxygen Delivery Me thod Room Air Documenting provider has reviewed patient's vital signs: yes Common normals: no apparent distress and alert General appearance: comfortable and well kempt HENMT: Common normals: normocephalic, moist oral mucous membranes and oropharynx normal Head and scalp: normocephalic Eye: Common normals: conjunctivae normal General eye: normal appearance of both eyes Conjunctiva: conjunctiva(e) normal Neck & C-Spine: Common normals: full ROM and no lymphadenopathy Resp: Common normals: normal respiratory effort, no use of accessory muscles and clear to auscultation bilaterally Effort & inspection: able to speak in complete sentences Auscultation: clear to auscultation bilaterally Cardio: Common normals: regular rate, regular rhythm, S1 normal heart sound, S2 normal heart sound and no murmurs Rate: regular rate Rhythm: regular rhythm Heart sounds: S1 normal and S2 normal GI: Common normals: Normal to inspection, nondistended, normoactive bowel sounds present, soft to palpation, non-tender, no hepatosplenomegaly and no masses Palpation: soft and no hepatosplenomegaly Extremity: Common normals: normal capillary refill and no pedal edema Neuro: Sensorium/orientation: alert Speech: speech normal Motor exam: no movement abnormalities noted Psych: Common normals: speech normal Appearance: well kempt Attitude: engaged Activity/motor behavior: appropriate eye contact Speech: normal speech Mood and affect: euthymic mood Insight: insight good Judgement: judgment good Skin: Common normals: no rashes or lesions noted General skin exam: no rashes or lesions noted Course Course ED Course: Nausea vomiting and diarrhea with no fever, abdominal pain or red flags on exam. Suspect viral gastroenteritis. Differential diagnosis also including colitis, obstruction, pancreatitis, toxic ingestion, among others. Mildly tachycardic but no hypotension or signs of dehydration. Recommended a trial of oral Zofran and Imodium and then re-evaluation. If improving can likely be discharged home with oral Zofran, Tylenol and ibuprofen as needed. Reevaluation(s) Time of Reevaluation #1: 01:42 Reevaluation #1: Patient feeling better after Zofran, Imodium and Pepcid. Has not had any further vomiting. Tolerating p.o. liquids. Suspect gastroenteritis. Will discharge home an Zofran, see discharge instructions. Alarm symptoms reviewed. Recheck if not improving in 3-4 days. Vital Signs Vital signs: Initial Vital Signs Temperature 98.1 F 04/03/24 00:30 Temperature Source Temporal Artery Scan 04/03/24 00:30 Pulse Rate 105 H 04/03/24 00:30 Respiratory Rate 20 04/03/24 00:30 Blood Pressure 139/84 04/03/24 00:30 Blood Pressure Mean 102 04/03/24 00:30 Blood Pressure Position Sitting 04/03/24 00:30 Pulse Oximetry 97 04/03/24 00:30 Oxygen Delivery Method Room Air 04/03/24 00:30 Vital Signs Temperature 98.1 F 04/03/24 00:30 Pulse Rate 105 H 04/03/24 00:30 Respiratory Rate 20 04/03/24 00:30 Blood Pressure 139/84 04/03/24 00:30 Pulse Oximetry 97 04/03/24 00:30 Oxygen Delivery Method Room Air 04/03/24 00:30 Temperature 98.1 F 04/03/24 00:30 Pulse Rate 105 H 04/03/24 00:30 Respiratory Rate 20 04/03/24 00:30 Blood Pressure 139/84 04/03/24 00:30 Pulse Oximetry 97 04/03/24 00:30 Oxygen Delivery Method Room Air 04/03/24 00:30 Medications Administered Medications: Discontinued Medications Generic Name Dose Route Start Last Admin Trade Name Freq PRN Reason Stop Dose Admin Famotidine 20 mg 04/03/24 00:54 04/03/24 01:21 Famotidine 20 Mg Tablet PO 04/03/24 00:55 20 mg ONCE ONE Administration Loperamide HCl 4 mg 04/03/24 00:48 04/03/24 01:21 Loperamide Hcl 2 Mg Capsule PO 04/03/24 00:49 4 mg ONCE ONE Administration Ondansetron HCl 8 mg 04/03/24 00:48 04/03/24 00:53 Ondansetron Odt 4 Mg Tab PO 04/03/24 00:49 8 mg ONCE ONE Administration Discharge Plan Discharge Clinical Impression: Gastroenteritis Patient Disposition: Home w/ Parent or Adult Condition: Improved Instructions: Gastroenteritis (DC) Additional Instructions: As we discussed, your symptoms seem consistent with gastroenteritis, stomach flu. Most likely is a caused by a virus. There is no evidence of dangerous pathology on your exam today. Symptoms should last probably about 3 days. Take another dose of the Zofran medication at 7:29 a.m. this morning and then see how things go for the rest of the day. You may continue repeating the medication 1 tablet up to every 6 hours. Drink plenty of fluids and eat salty, bland foods. Your given a dose of Imodium, often a single dose will slow diarrhea. You may continue repeating this up to every 2 hours if you continue to have diarrhea. Slowly advance her diet as you are feeling better. If not improving in 3-4 days, please be re-evaluated in the clinic. Home from work today. Activity Level: Activity as Tolerated Discharge Diet: Regular Prescriptions: No Action montelukast 10 mg tablet 10 mg PO DAILY Follow Up/Referrals: Provider,Not a Local [Staff Physician] - Stand Alone Forms: [employer] Info Instructions
--- OUTSIDE RECORDS SUMMARY | 2024-04-03 00:56 | XMS_ITS | Clinical Summary ---
Author Organization [employer] [facility] Address [place], [place] [address] Care Team Providers Care Computer Forensic Examiner Name Role Phone Pcp, No Primary Care Provider Unavailabl e Allergies Active Allergy Reactions Criticality Noted Date Comments Amoxicillin Rash 04/15/2007 Loracarbef Rash 04/15/2007 Penicillins Rash 04/15/2007 Medications Medication Sig Dispensed Refills Start Date End Date Status valACYclovir (Valtrex) 1 gram tabletIndications :HSV-1 infection Take 1 Tablet (1 g) by mouth two times daily. Fill at patient's request 20 Tablet 1 05/10/2023 Active Additional Information Patient taking differently:1 g OralBID PRN, Breakouts, Fill at patient's request, Informant: Patient's Recall, Reported on 11/14/2023 montelukast (SINGULAIR) 10 mg tabletIndications :Allergic disorder, initial encounter Take 1 Tablet (10 mg) by mouth at bedtime. 90 Tablet 3 12/25/2023 Active benzonatate (Tessalon Perles) 100 mg capsuleIndication s:Influenza B Take 1 Capsule (100 mg) by mouth 3 times daily if needed for Cough. 30 Capsule 01/02/2024 Active fluticasone (50 mcg per actuation) nasal solution (FLONASE)Indicati ons:Recurrent infections,Chroni c rhinitis Inhale 2 Sprays to both nostrils once daily. 16 g 11 01/07/2024 Active cetirizine (ZYRTEC) 10 mg tabletIndications :Chronic rhinitis Take 1 Tablet (10 mg) by mouth once daily. 30 Tablet 2 01/07/2024 04/06/2024 Active Active Problems Problem Noted Date Diagnosed Date Cocaine use 09/01/2022 Pap smear for cervical cancer screening 05/15/20 Overview: 05/2022 NIL/ HPV negative Plan: Pap/ HPV due 05/2027 Closed avulsion fracture of middle phalanx of fi nger 11/27/2019 Tobacco dependence 07/03/2018 Dermatophytosis of the body 04/15/2007 Encounters Date Type Department Care Team Description 01/23/2024 Refill [facility] [address] [place] [address] Mary Rubio DO Refill Request (Zyrtec) 01/21/2024 3:30 PM CDT Orders Only [facility] [address] [place] [address] Lab, [place] Lab 01/21/2024 Telephone [facility] [address] [facility] [place] [address] Mary Rubio DO scan 01/21/2024 Travel 01/07/2024 4:10 PM CDT Office Visit [facility] [address] [facility] [place] [address] Mary Rubio DO Concerns (Getting sick every 1-2 weeks - effecting her work - would like to discuss underlying causes ) 01/07/2024 Travel from Last 3 Months Immunizations Name [...] Sign Reading Time Taken Comments Blood Pressure 125/76 01/07/2024 4:08 PM CDT Pulse 92 01/07/2024 4:08 PM CDT Temperature 37.7 ??C (99.9 ??F) 01/01/2024 3:04 PM CD T Respiratory Rate 22 11/20/2023 6:19 PM [employer] Oxygen Saturation 98% 01/07/2024 4:08 PM CDT Inhaled Oxygen Concentration - - Weight 81.6 kg (180 lb) 01/07/2024 4:08 PM CDT Height 160 cm (5' 3) 12/25/2023 2:38 PM CDT Body Mass Index 31.89 12/25/2023 2:38 PM CDT Plan of Treatment Upcoming Encounters Date Type Department Care Team (Late st Contact Info) Description 05/12/2024 1:20 PM CDT Office Visit [facility] [address] [facility] [place] [address] Bora Lawrence MD [address] [facility] [address] [place] [id number] Health Maintenance Due Date Last Done Comments HPV series for age 9-26 (1 - 3-dose series) 2014 Tetanus booster 04/05/2021 04/05/2011 Chlamydia for age 16-24 05/30/2023 05/30/20, 08/28/2019, 07/03/2019, Additional history exists COVID-19 vaccine series (2022- season) 2023 Depression screening for age 12+ 09/12/2023 09/12/2022, 02/18/2021, 02/17/2021, Additional history exists Influenza for age 9-49 06/15/2024 BMI (ht and wt on same day) for age 18+ 12/24/2024 12/25/2023, 10/25/2023, 09/12/2022, Additional history exists Pap test for age 21-65 05/30/2027 05/30/2022, 2021 Pneumococcal series for age 6-64 Aged Out 09/24/2000 No longer eligible based on patient's age to complete this topic Tdap Completed 04/05/2011 HIV for age 15-65 Completed 05/30/2022 Hepatitis C screening for age 18-79 Completed 05/30/2022 Procedures Procedure Name Priority Date/Time Associated Diagnosis Comments CBC WITH AUTO DIFFERENTIAL Routine 01/21/2024 3:33 PM CDT Recurrent infections IGA Routine 01/21/2024 3:33 PM CDT Recurrent infections CBC WITH AUTO DIFFERENTIAL Routine 01/21/2024 3:33 PM CDT Recurrent infections ANTI HIV 1/2 Routine 05/30/2022 11:40 AM CDT Encounter for assessment of STD exposure ANTI HCV Routine 05/30/2022 11:40 AM CDT Encounter for assessment of STD exposure GC CHLAMYDIA TRACH PROBE Routine 05/30/2022 11:19 AM CDT Encounter for assessment of STD exposure HPV THIN PREP Routine 05/30/2022 11:19 AM CDT Encounter for cervical Pap smear with pelvic exam from Last 3 Months or Most Recently Relevant to Health Maintenance Results * (ABNORMAL) CBC WITH AUTO DIFFERENTIAL (01/21/2024 3:33 PM CDT) WHITE BLOOD COUNT 7.0 4.5 - 11.0 thou/cu mm 01/21/2024 3:47 PM CDT [facility] RED BLOOD COUNT 3.97(L) 4.00 - 5.20 mil/cu mm 01/21/2024 3:47 PM CDT [facility] HEMOGLOBIN 12.3 12.0 - 16.0 g/dL 01/21/2024 3:47 PM CDT [facility] HEMATOCRIT 36.5 33.0 - 51.0 % 01/21/2024 3:47 PM CDT [facility] MCV 92 80 - 100 fL 01/21/2024 3:47 PM CDT [facility] MCH 31.0 26.0 - 34.0 pg 01/21/2024 3:47 PM CDT [facility] MCHC 33.7 32.0 - 36.0 g/dL 01/21/2024 3:47 PM CDT [facility] RDW 14.1 11.5 - 15.5 % 01/21/2024 3:47 PM CDT [facility] PLATELET COUNT 311 140 - 440 thou/cu mm 01/21/2024 3:47 PM CDT [facility] MPV 10.0 6.5 - 11.0 fL 01/21/2024 3:47 PM CDT [facility] % NEUT 52.3 % 01/21/2024 3:47 PM CDT [facility] % LYMPH 36.9 % 01/21/2024 3:47 PM CDT [facility] % MONO 8.9 % 01/21/2024 3:47 PM CDT [facility] % EOS 1.6 % 01/21/2024 3:47 PM CDT [facility] % BASO 0.3 % 01/21/2024 3:47 PM CDT [facility] ABSOLUTE NEUTROPHILS 3.7 1.7 - 7.0 thou/cu mm 01/21/2024 3:47 PM CDT [facility] ABSOLUTE LYMPHOCYTES 2.6 0.9 - 2.9 thou/cu mm 01/21/2024 3:47 PM CDT [facility] ABSOLUTE MONOCYTES 0.6 <0.9 thou/cu mm 01/21/2024 3:47 PM CDT [facility] ABSOLUTE EOSINOPHILS 0.1 <0.5 thou/cu mm 01/21/2024 3:47 PM CDT [facility] ABSOLUTE BASOPHILS 0.0 <0.3 thou/cu mm 01/21/2024 3:47 PM CDT [facility] Blood BLOOD SPECIMEN / Unknown Venipuncture / Unknown 01/21/2024 3:33 PM CDT 01/21/2024 3:33 PM CDT Mary Rubio DO HEMATOLOGY Performing Organization Address City/State/[facility] Co de Phone Number [facility] [address] [place] [address], * IGA (01/21/2024 3:33 PM CDT) IGA 134.30 84.50 - 499.00 mg/dL 01/22/2024 11:38 AM CDT [facility] Blood BLOOD SPECIMEN / Unknown Venipuncture / Unknown 01/21/2024 3:33 PM CDT 01/21/2024 3:33 PM CDT Mary Rubio DO CHEMISTRY [facility] [address] [place] [address], [place] * ANTI HCV (05/30/2022 11:40 AM CDT) Pathologist [facility] HEPATITIS C ANTIBODY Non-React chantell Non-React chantell 05/31/2022 4:58 AM CDT [facility] Comment:Antibodies to HCV no t detected; does not exclude the possibility of exposure to HCV. Blood BLOOD SPECIMEN / Unknown Venipuncture / Unknown 05/30/2022 11:40 AM CDT 05/30/2022 11:40 AM CDT Kamryn PETERS SEND OUTS Performing Organization Address City/[facility]/ZIP Co de Phone Number [facility] [address] [place] [phone], [place] * ANTI HIV 1/2 (05/30/2022 11:40 AM CDT) Pathologist [facility] HIV-1/HIV-2 ANTIBODY Non-Reacti ve Non-Reacti ve 05/31/2022 5:28 AM CDT [facility] Comment:HIV-1 p24 and HIV-1/ HIV-2 Ab not detected. Blood BLOOD SPECIMEN / Unknown Venipuncture / Unknown 05/30/2022 11:40 AM CDT 05/30/2022 11:40 AM CDT Kamryn PETERS SEND OUTS [facility] [address] [place] [address], [place] * GC CHLAMYDIA TRACH PROBE (05/30/2022 11:19 AM CDT) Pathologist [facility] CHLAMYDIA PROBE Negative 10:59 PM CDT [facility] N GONORRHOEAE PROBE Negative 05/30/2022 10:59 PM CDT [facility] Other VAGINAL SWAB / Unknown Non-Blood / Unknown 05/30/2022 11:19 AM CDT 05/30/2022 11:35 AM CDT Kamryn PETERS MICROBIOLOGY [facility] [address] [place] [address], * HPV HIGH RISK (05/30/2022 11:19 AM CDT) TYPE 16 Negative Negative 06/01/2022 2:34 PM CDT [facility] TYPE 18 Negative Negative 06/01/2022 2:34 PM CDT [facility] OTHER HIGH RISK TYPES Negative Negative 06/01/2022 2:34 PM CDT [facility] Other (Cervical) Non-Blood / Unknown 05/30/2022 11:19 AM CDT 05/30/2022 6:54 PM CDT Narrative [facility] - 06/01/2022 2:34 PM CDT HPV types 16, 18, 31, 33, 35, 39, 45, 51, 52, 56, 58, 59, 66 and 68 DNA were undetectable or below the pre-set threshold. Methodology: Vanessa Tracy 4800 HPV Test Kamryn PETERS MICROBIOLOGY [facility] [address] [place] [address], from Last 3 Months or Most Recently Relevant to Health Maintenance Advance Directives * Full Code (Latest Code Status on File) Date Activated Date Inactivated Comments 11/14/2023 10:27 AM 11/14/2023 5:07 PM Question Answer Comments Code Status Discussion: Reviewed Preferences Care Teams Computer Forensic Examiner Relationship Specialty Start Date End Date Pcp, No . PCP - General 09/20/23
[2024-04-03] MEDS: LOPERAMIDE HCL 2 MG CAPSULE 4 MG PO (01:21)
[2024-04-03] MEDS: FAMOTIDINE 20 MG TABLET PO (01:21)
[2024-04-03 01:48] VITALS: BP 125/74; PULSE 85; RESP 20; TEMP 36.7; O2SAT 97
[2024-04-03 01:49] VITALS: BP 125/74; PULSE 85; RESP 20; TEMP 36.7
== END 2024-04-03 01:49 | disposition home or self-care (01) ==
PROVIDERS: Emergency Provider Family Medicine; PCP Student in an Organized Health Care Education/Training Program
DX: K52.9 Noninfective gastroenteritis and colitis, unspecified (principal)
CPT/HCPCS: 99283; A9270

== ENCOUNTER 2024-07-12 16:54 | Emergency (ER) | payer BC, SELFPAY ==
[2024-07-12 16:59] VITALS: BP 132/93; PULSE 100; RESP 18; TEMP 36.8; O2SAT 97; BMI 33.7
--- NOTE | 2024-07-12 17:12 | ED.GENADULT ---
HPI - General Adult General Chief complaint: Sore Throat Stated complaint: Sore throat Time Seen by Provider: 07/12/24 17:00 Source: patient Mode of arrival: ambulatory Limitations: no limitations History of Present Illness HPI narrative: 24-year-old female coming in today complaining of a sore throat for 2 weeks. States she was diagnosed with the otitis media and was treated with cefdinir. Sore throat really never went away with that treatment. She denies fevers or chills. She describes the pain as unbearable?. However she is not having any difficulty speaking, breathing or swallowing her saliva at this point. Patient states that the sore throat is worse 1st thing in the morning or at night, she has a mild cough 1st thing in the morning as well. She denies any vomiting. Patient does use cocaine. Related Data Home Medications ?Medication ?Instructions ?Recorded ?Confirmed montelukast 10 mg tablet 10 mg PO DAILY 04/03/24 07/03/24 Allergies Allergy/AdvReac Type Severity Reaction Status Date / Time amoxicillin Allergy Intermediate Rash Verified 07/03/24 11:36 Penicillins Allergy Intermediate Rash Verified 07/03/24 11:36 Review of Systems Status of ROS: Reports: 10 or more systems reviewed and unremarkable except as noted in History and below [facility] Medical History No significant past medical history Surgical History No significant past surgical history Social History Smoking Status: Current every day smoker Do you use any of these nicotine containing products: Vaping Products Second hand tobacco smoke exposure: No How often do you have a drink containing alcohol: 2-3 times a week How many standard drinks containing alcohol do you have on a typical day: 1 or 2 How often do you have six or more drinks on one occasion: Never AUDIT-C Alcohol total score: 3 Non-prescribed substance use: denies use service: No Exam Narrative: Exam Narrative: Well-nourished well-developed patient in no acute distress. Alert and oriented. Answers questions appropriately. Mood and affect are appropriate. Thoughts are goal oriented and rational. No tangential or magical thinking noted. Patient speaks in full sentences without needing to catch her breath. Voice sounds normal. HEENT: Normocephalic atraumatic. Pupils are dilated and sluggish. Extraocular muscles are intact. Conjunctivae are moist without any icterus noted. Moist mucous membranes. Posterior pharynx is normal. Neck is soft without any lymphadenopathy or thyromegaly. No masses are appreciated. TMs are clear bilaterally. Cardiovascular: Heart is regular rate and rhythm S1 and S2 are present without any murmurs. Lungs: Clear to auscultation bilaterally no wheezes rhonchi or rales are appreciated. Patient takes deep breaths without any discomfort. Skin: Well perfused. Const: Vital Signs, click to edit/add: Vital Signs - 24 hr 07/12/24 16:59 Temperature 98.3 F Pulse Rate [Pulse Oximeter] 100 Respiratory Rate 18 Blood Pressure [Ri ght Upper Arm] 132/93 H Pulse Oximetry 97 Oxygen Delivery Me thod Room Air Course Course ED Course: We did do a rapid strep, COVID test and mono test: Luna was negative. Rapid strep is negative. COVID-19 is negative. Vital Signs Vital signs: Initial Vital Signs Temperature 98.3 F 07/12/24 16:59 Temperature Source Temporal Artery Scan 07/12/24 16:59 Pulse Rate 100 07/12/24 16:59 Pulse Rhythm Regular 07/12/24 16:59 Respiratory Rate 18 07/12/24 16:59 Blood Pressure 132/93 H 07/12/24 16:59 Blood Pressure Mean 106 H 07/12/24 16:59 Blood Pressure Position Sitting 07/12/24 16:59 Pulse Oximetry 97 07/12/24 16:59 Oxygen Delivery Method Room Air 07/12/24 16:59 Vital Signs Temperature 98.3 F 07/12/24 16:59 Pulse Rate 100 07/12/24 16:59 Respiratory Rate 18 07/12/24 16:59 Blood Pressure 132/93 H 07/12/24 16:59 Pulse Oximetry 97 07/12/24 16:59 Oxygen Delivery Method Room Air 07/12/24 16:59 Temperature 98.3 F 07/12/24 16:59 Pulse Rate 100 07/12/24 16:59 Respiratory Rate 18 07/12/24 16:59 Blood Pressure 132/93 H 07/12/24 16:59 Pulse Oximetry 97 07/12/24 16:59 Oxygen Delivery Method Room Air 07/12/24 16:59 Medical Decision Making MDM Narrative Medical decision making narrative: 24-year-old female with 2 weeks of a sore throat, physical exam unremarkable and testing for causes of sore throat are negative. I do not believe given her physical exam, but she has a peritonsillar abscess present. We discussed other possibilities of sore throat given that it is worse 1st thing in the morning and when she lays down at night include GERD. We also discussed the use of cocaine can cause sore throat. Lab Data Lab results reviewed: Yes I reviewed the patient's lab results Labs: Lab Results 07/12/24 07/12/24 Range/Units 17:15 17:18 SARS-CoV-2 (PCR) Negative SARS-CoV-2 (Negative) Monoscreen Negative (Negative) Group A Strep DNA NOT DETECTED (Not Detectd) Discharge Plan Discharge Clinical Impression: Sore throat Patient Disposition: Home, Self-Care Condition: Stable Additional Instructions: Cocaine use can cause sore throat-recommend you refrain from using cocaine going forward. Other things that can cause daily sore throat include gastric reflux - you can take a famotidine before bed, uses for about a week to see if it helps. This can be purchased [id number]. Recently we have been seeing cocaine over doses due to cocaine being spiked with other medications such as fentanyl. Please be aware of this. In the event of an overdose to recommend that you use Narcan. Otherwise, you can also take ibuprofen as needed/as directed for sore throat. Return to the ER if you develop a fever, difficulty breathing or swallowing. Prescriptions: No Action montelukast 10 mg tablet 10 mg PO DAILY Follow Up/Referrals: DENIS LUI DO [Primary Care Provider] - Stand Alone Forms: [email or web address] Info Instructions
--- OUTSIDE RECORDS SUMMARY | 2024-07-12 17:15 | XMS_ITS | Clinical Summary ---
Author Organization [employer] [facility] [employer] [facility] Address [place], [place] [address] Care Team Providers Care Cullet Trucker Name Role Phone Mary Rubio DO Primary Care Provider [phone] Allergies Active Allergy Reactions Criticality Noted Date [...] at bedtime. 90 Tablet 3 12/25/2023 Active fluticasone (50 mcg per actuation) nasal solution (FLONASE)Indicati ons:Recurrent infections,Chroni c rhinitis Inhale 2 Sprays to both nostrils once daily. 16 g 11 01/07/2024 Active cefdinir (OMNICEF) 300 mg capsuleIndication s:Acute otitis media, left Take 1 Capsule (300 mg) by mouth two times daily for 7 days. 14 Capsule 07/07/2024 07/14/2024 Active predniSONE (DELTASONE) 20 mg tabletIndications :Viral URI Take 2 Tablets (40 mg) by mouth once daily with a meal for 3 days. 6 Tablet 07/07/2024 07/10/2024 Active Problems Problem Noted Date Diagnosed Date Cocaine use 09/01/2022 Pap smear for cervical cancer screening 05/15/20 Overview (07/26/2022): 05/2022 NIL/ HPV negative Plan: Pap/ HPV due 05/2027 Closed avulsion fracture of middle phalanx of fi nger 11/27/2019 Tobacco dependence 07/03/2018 Dermatophytosis of the body 04/15/2007 Encounters Date Type Department Care Team Description 07/07/2024 1:40 PM CDT Office Visit [facility] [address] [place] [address] Kamryn Crespo PA URI 07/07/2024 Travel 05/26/2024 3:30 PM CDT Office Visit [facility] [address] [place] [address] Gonzalo Bustillo MD Follow Up (Patient cut 2 fingers on glass 05/10/2024 - RIGHT index and middle fingers over knuckle/Now has trouble bending fingers) 05/26/2024 Telephone [facility] [address] [place] [address] Gonzalo Bustillo MD Immunization/Injectio n 05/26/2024 Travel 05/12/2024 1:20 PM CDT Office Visit [facility] [address] [place] [address] Bora Lawrence MD Allergies (Consult-environmenta l allergies ) 05/12/2024 Travel from Last 3 Months Immunizations Name [...] Sign Reading Time Taken Comments Blood Pressure 131/84 07/07/2024 1:42 PM CDT Pulse 85 05/26/2024 3:35 PM CDT Temperature 36.5 ??C (97.7 ??F) 07/07/2024 1:42 PM CD T Respiratory Rate 22 11/20/2023 6:19 PM [employer] Oxygen Saturation 97% 07/07/2024 1:42 PM CDT Inhaled Oxygen Concentration - - Weight 86.6 kg (191 lb) 07/07/2024 1:42 PM CDT Height 160 cm (5' 3) 12/25/2023 2:38 PM CDT Body Mass Index 33.83 12/25/2023 2:38 PM CDT Plan of Treatment Health Maintenance Due Date Last Done Comments HPV series for age 9-26 (1 - 3-dose series) 2014 Tetanus booster 04/05/2021 04/05/2011 Depression screening for age 12+ 09/12/2023 09/12/2022, 02/18/2021, 02/17/2021, Additional history exists COVID-19 vaccine series ( season) 2024 Influenza for age 9-49 06/15/2024 BMI (ht [...] Procedure Name Priority Date/Time Associated Diagnosis Comments [place] PERCUTANEOUS TESTS W/ALLERGENIC EXTRACTS Routine 05/12/2024 12:00 AM CDT Allergic rhinitis, unspecified seasonality, unspecified trigger ANTI HIV 1/2 Routine 05/30/2022 11:40 AM CDT Encounter for assessment of STD exposure ANTI HCV Routine 05/30/2022 11:40 AM CDT Encounter for assessment of STD exposure HPV HIGH RISK Routine 05/30/2022 11:19 AM CDT Encounter for cervical Pap smear with pelvic exam from Last 3 Months or Most Recently Relevant to Health Maintenance Results * [place] PERCUTANEOUS TESTS W/ALLERGENIC EXTRACTS (05/12/2024 12:00 AM CDT) Bora Lawrence MD [facility] - [facility] * ANTI HCV (05/30/2022 11:40 AM CDT) Pathologist [facility] [place] HEPATITIS C ANTIBODY Non-React chantell Non-React chantell 05/31/2022 4:58 AM CDT [facility] Comment:Antibodies to HCV no t detected; does not exclude the possibility of exposure to HCV. Blood BLOOD SPECIMEN / Unknown Venipuncture / Unknown 05/30/2022 11:40 AM CDT 05/30/2022 11:40 AM CDT Kamryn PETERS SEND OUTS [facility] [address] [place] [address], * ANTI HIV 1/2 (05/30/2022 11:40 AM CDT) Pathologist [facility] [place] HIV-1/HIV-2 ANTIBODY Non-Reacti ve Non-Reacti ve 05/31/2022 5:28 AM CDT [facility] Comment:HIV-1 p24 and HIV-1/ HIV-2 Ab not detected. Blood BLOOD SPECIMEN / Unknown Venipuncture / Unknown 05/30/2022 11:40 AM CDT 05/30/2022 11:40 AM CDT Kamryn PETERS SEND OUTS [facility] [address] * HPV HIGH RISK (05/30/2022 11:19 AM CDT) Pathologist [facility] [place] TYPE 16 Negative Negative 06/01/2022 2:34 PM CDT [facility] TYPE 18 Negative Negative 06/01/2022 2:34 PM CDT [facility] OTHER HIGH RISK TYPES Negative Negative 06/01/2022 2:34 PM CDT [facility] Other (Cervical) Non-Blood / Unknown 05/30/2022 11:19 AM CDT 05/30/2022 6:54 PM CDT Narrative [facility] - 06/01/2022 2:34 PM CDT HPV types 16, 18, 31, 33, 35, 39, 45, 51, 52, 56, 58, 59, 66 and 68 DNA were undetectable or below the pre-set threshold. Methodology: Vanessa Tracy 4800 HPV Test Kamryn PETERS MICROBIOLOGY [facility] [address] [place] [address], from Last 3 Months or Most Recently Relevant to Health Maintenance Advance Directives * Full Code (Latest Code Status on File) Date Activated Date Inactivated Comments 11/14/2023 10:27 AM 11/14/2023 5:07 PM Question Answer Comments Code Status Discussion: Reviewed Preferences Care Teams Cullet Trucker Relationship Specialty Start Date End Date Mary Rubio [place] [address] PCP - General Family Practice 05/12/24
[2024-07-12 17:29] LABS: Mono Screen* Negative (Negative)
[2024-07-12 17:48] LABS: Strep A DNA Probe* NOT DETECTED (Not Detectd)
[2024-07-12 17:54] LABS: SARS PCR* Negative SARS-CoV-2 (Negative)
== END 2024-07-12 18:20 | disposition home or self-care (01) ==
PROVIDERS: Emergency Provider Family Medicine; PCP Student in an Organized Health Care Education/Training Program
DX: J02.9 Acute pharyngitis, unspecified (principal)
CPT/HCPCS: 36415; 86308; 87635; 87651; 99283; 99284

== ENCOUNTER 2025-05-20 15:34 | Outpatient (CLI) | payer BC, SELFPAY | END 2025-05-20 15:35 | disposition home or self-care (01) | LOC: NFLDREF 05-25 15:01 | PROVIDERS: PCP Student in an Organized Health Care Education/Training Program; Referring Provider Student in an Organized Health Care Education/Training Program | DX: R30.0 Dysuria (principal); N39.0 Urinary tract infection, site not specified | CPT/HCPCS: 87086; 87186 ==

== ENCOUNTER 2025-05-29 13:40 | Emergency (ER) | payer BC, SELFPAY ==
--- OUTSIDE RECORDS SUMMARY | 2025-05-29 13:43 | XMS_ITS | Clinical Summary ---
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 Fill at patient's request 20 Tablet 1 3 Active Additional Information Patient taking differently:1 g OralBID PRN, Breakouts, Fill at patient's request, Informant: Patient's Recall, Reported on 11/14/2023 montelukast (SINGULAIR) 10 mg tabletIndicati ons:Allergic disorder, initial encounter Take 1 Tablet (10 mg) by mouth at bedtime. 90 Tablet 3 4 Active fluticasone (50 mcg per actuation) nasal solution (FLONASE)Indic ations:Recurre nt infections,Chr onic rhinitis Inhale 2 Sprays to both nostrils once daily. 16 g 11 4 Active HYDROcodone-ac etaminophen (5-325 mg/tablet)Nereyda cations:Otitis of left ear,Sore throat,Acute ear pain, left Take 1 Tablet by mouth 2 times daily if needed (severe pain). Max acetaminophen dose: 4000 mg in 24 hrs. 6 Tablet 4 Active Active Problems Problem Noted Date Diagnosed Date Cocaine use 09/01/2022 Pap smear for cervical cancer screening 05/15/20 Overview (07/26/2022): 05/2022 NIL/ HPV negative Plan: Pap/ HPV due 05/2027 Closed avulsion fracture of middle phalanx of fi nger 11/27/2019 Tobacco dependence 07/03/2018 Dermatophytosis of the body 04/15/2007 Immunizations Immunization Administration Dates Next Due DTaP 06/08/2004, 2,09/24/2000,1999,1999 [...] 2 09/12/2022 Social Connections Answer Date Recorded Do you often feel lonely or isolated from those around you? 0 10/16/2023 Alcohol Use Answer Date Recorded [...] file 10/16/2023 Food Insecurity Answer Date Recorded Do you worry your food will run out before you are able to buy more? 1 10/16/2023 Transportation Needs Answer Date Record ed Does lack of transportation keep you from medica l appointments? 1 10/16/2023 Does lack of transportation keep you from work, meetings or getting things that you need? 1 10/16/2023 Housing Stability Answer Date Recorded What is your housing situation today? 1 10/16/2023 Interpersonal Safety Answer Date Record ed Are you being hit, kicked, p ushed or yelled at (see row info)? No 07/13/2024 Interpersonal Safety Abuse 12 - 18 Not on file 07/13/2024 Interpersonal Safety Ambulatory Vulnerability No t on file 07/13/2024 Utilities Answer Date Recorded Do you have trouble paying f or utilities (for example, heat, electricity, water, phone)? 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 Gender Identity Not on file Sexual Orientation Not on file Obstetrics History Para Term AB IAB SAB Ectopic Multiple Livin g Live Births 0 0 0 0 0 0 0 0 0 0 0 Last Filed Vital Signs Vital Sign Reading Time Taken Comments Blood Pressure 148/103 07/13/2024 6:43 AM CDT Pulse 83 07/13/2024 6:43 AM CDT Temperature 36.8 C (98.2 F) 07/13/2024 2:45 AM CDT Respiratory Rate 16 07/13/2024 2:45 AM CDT Oxygen Saturation 98% 07/13/2024 6:43 AM CDT Inhaled Oxygen Concentration - - Weight 84.8 kg (187 lb) 07/13/2024 2:45 AM CDT Height 160 cm (5' 3) 07/13/2024 2:45 AM CDT Body Mass Index 33.13 07/13/2024 2:45 AM CDT Plan of Treatment Upcoming Encounters Date Type Department Care Team (Late st Contact Info) Description 06/09/2025 2:30 PM CDT Office Visit [facility] [address] [address] Rhina Tristan, [facility] [address] [place] [address] Health Maintenance Due Date Last Done Comments HPV series for age 9-26 (1 - 3-dose series) 2014 Tetanus booster 04/05/2021 04/05/2011 Depression screening for age 12+ 09/12/2023 09/12/2022, 02/18/2021, 02/17/2021, Additional history exists COVID-19 vaccine series ( season) 2024 BMI (ht and wt on same day) for age 18+ 12/24/2024 12/25/2023, 10/25/2023, 09/12/2022, Additional history exists Influenza Vaccine (#1) 2025 Pap test for age 21-65 05/30/2027 05/30/2022, 2021 Hepatitis B series for 19+ Completed 09/24, 1999, 1999 Pneumococcal series for age 6-49 Aged Out 09/24/2000 No longer eligible based on patient's age to complete this topic HIV for age 15-65 Completed 05/30/2022 Hepatitis C screening for age 18-79 Completed 05/30/2022 Procedures Procedure Name Priority Date/Time Associated Diagnosis Comments ANTI HIV 1/2 Routine 05/30/2022 11:40 AM CDT Encounter for assessment of STD exposure ANTI HCV Routine 05/30/2022 11:40 AM CDT Encounter for assessment of STD exposure HPV HIGH RISK Routine 05/30/2022 11:19 AM CDT Encounter for cervical Pap smear with pelvic exam from Last 3 Months or Most Recently Relevant to Health Maintenance Results * ANTI HCV (05/30/2022 11:40 AM CDT) HEPATITIS C ANTIBODY Non-React chantell Non-React chantell 05/31/2022 4:58 AM CDT [facility] Comment:Antibodies to HCV no t detected; does not exclude the possibility of exposure to HCV. Blood BLOOD SPECIMEN / Unknown Venipuncture / Unknown 05/30/2022 11:40 AM CDT 05/30/2022 11:40 AM CDT Kamryn PETERS SEND OUTS Final Result Performing Organization Address City/[facility]/ZIP Co de Phone Number [facility] [address] [place] [address], * ANTI HIV 1/2 (05/30/2022 11:40 AM CDT) HIV-1/HIV-2 ANTIBODY Non-Reacti ve Non-Reacti ve 05/31/2022 5:28 AM CDT [facility] Comment:HIV-1 p24 and HIV-1/ HIV-2 Ab not detected. Blood BLOOD SPECIMEN / Unknown Venipuncture / Unknown 05/30/2022 11:40 AM CDT 05/30/2022 11:40 AM CDT Kamryn PETERS SEND OUTS Final Result Performing Organization Address [facility] Co de Phone Number [facility] [address] [place] [address], * HPV HIGH RISK (05/30/2022 11:19 AM CDT) TYPE 16 Negative Negative 06/01/2022 2:34 PM CDT [facility] TYPE 18 Negative Negative 06/01/2022 2:34 PM CDT [facility] OTHER HIGH RISK TYPES Negative Negative 06/01/2022 2:34 PM CDT [facility] Other (Cervical) Non-Blood / Unknown 05/30/2022 11:19 AM CDT 05/30/2022 6:54 PM CDT Narrative [facility] - 06/01/2022 2:34 PM CDT HPV types 16, 18, 31, 33, 35, 39, 45, 51, 52, 56, 58, 59, 66 and 68 DNA were undetectable or below the pre-set threshold. Methodology: Vanessa Tracy 4800 HPV Test Kamryn PETERS MICROBIOLOGY Final Result [facility] 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
== END 2025-05-29 14:04 | disposition left against medical advice (07) ==
PROVIDERS: PCP Student in an Organized Health Care Education/Training Program
DX: Z53.21 Procedure and treatment not carried out due to patient leaving prior to being seen by health care provider (principal)

== ENCOUNTER 2025-06-12 15:28 | Outpatient (CLI) | payer BC, SELFPAY ==
[2025-06-12 18:45] LABS: Bacterial Vaginosis* POSITIVE (Negative); Candida glab/krus NOT DETECTED (No Detected)
[2025-06-12 19:16] LABS: Chlamydia DNA Amplified* NOT DETECTED (No Detected); GC DNA Amplified* NOT DETECTED (No Detected)
== END 2025-06-12 15:29 | disposition home or self-care (01) ==
PROVIDERS: PCP Student in an Organized Health Care Education/Training Program; Visit Provider Registered Nurse
DX: N89.8 Other specified noninflammatory disorders of vagina (principal); Z11.3 Encounter for screening for infections with a predominantly sexual mode of transmission; Z11.4 Encounter for screening for human immunodeficiency virus [HIV]; Z11.59 Encounter for screening for other viral diseases; Z13.6 Encounter for screening for cardiovascular disorders
CPT/HCPCS: 80061; 81513; 86592; 86703; 86803; 87340; 87481; 87491; 87591; 87661